=== PATIENT | male | born 1945 | race Caucasian/White ===

== ENCOUNTER 2020-01-12 13:06 | Outpatient (CLI) | payer MEDICARE, BC, SELFPAY ==
--- NOTE | 2020-01-12 13:30 | USCV_ITS ---
Roderick Arnold Age: 74 Gender: M : 1945 Exam Date: 01/12/2020 13:19 Ordering Phys: Marcelina Sharpe MD ([email or web address]) Technologist: Khadar Small Exam Location: [facility] – [place] Indication: BP: 130 / 75 HR: 69 Rhythm: Sinus Technical Quality: Fair MEASUREMENTS (Male / Female) Normal Values 2D ECHO LVOT Diameter 2.0 cm LA Diameter 4.6 cm LA Width 4.1 cm LA Height 5.1 cm RA Width 3.1 cm RA Height 4.4 cm Aorta at Sinotubular Diameter 1.1 cm M-MODE LV Diastolic Diameter MM 4.9 cm 4.2 - 5.9 / 3.9 - 5.3 cm LV Systolic Diameter MM 3.9 cm LV Ejection Fraction MM Teich 44.4 % IVS Diastolic Thickness MM 0.9 cm 0.6 - 1.0 / 0.6 - 0.9 cm IVS Systolic Thickness MM 1.4 cm LVPW Diastolic Thickness MM 1.4 cm 0.6 - 1.0 / 0.6 - 0.9 cm LVPW Systolic Thickness MM 1.8 cm RV Diastolic Diameter MM 2.3 cm Aortic Annulus Diameter 4.0 cm LA Ao Ratio MM 1.2 MV E Point Septal Separation 0.7 cm DOPPLER AV Peak Velocity 323.0 cm/s LVOT Peak Velocity 91.0 cm/s AV Area Cont Eq vti 0.9 cm squared AV Area Cont Eq pk 0.9 cm squared MV Area PHT 5.4 cm squared Mitral E to A Ratio 0.8 MV E' Velocity 57.0 cm/s Mitral E to LV E' Septal Ratio 12.4 TR Peak Velocity 276.0 cm/s TR Peak Gradient 30.5 mmHg TV Peak E Velocity 114.0 cm/s Right Atrial Pressure 3.0 mmHg Pulmonary Artery Systolic Pressu 33.5 mmHg PV Peak Velocity 101.0 cm/s FINDINGS Left Ventricle Normal left ventricular cavity size. Normal left ventricular systolic function. No regional wall motion abnormalities. Left ventricular ejection fraction is estimated at 60 %. No regional wall motion abnormalities. Grade I/IV diastolic dysfunction (abnormal relaxation filling pattern), normal to mildly elevated filling pressures. Right Ventricle The right ventricle is normal in size and function. Right Atrium The right atrium is normal in size. Left Atrium The left atrium is normal in size. Mitral Valve Moderately thickened mitral valve. Severe mitral annular calcification. No mitral valve stenosis. No mitral valve regurgitation. Aortic Valve Severe aortic valve calcification. Moderate aortic valve stenosis, mean gradient 19 mmHg, KAEL 0.92 cm squared. Mild aortic valve regurgitation. Tricuspid Valve Structurally normal tricuspid valve without significant stenosis or regurgitation. Pulmonary artery systolic pressure is normal. Pulmonic Valve Structurally normal pulmonic valve without significant stenosis. There is no pulmonic regurgitation. Pericardium Normal pericardium without effusion. Aorta Normal ascending aorta dimension. CONCLUSIONS 1-Normal left ventricular cavity size. Normal left ventricular systolic function. No regional wall motion abnormalities. Left ventricular ejection fraction is estimated at 60 %. No regional wall motion abnormalities. Grade I/IV diastolic dysfunction (abnormal relaxation filling pattern), normal to mildly elevated filling pressures. 2-Moderately thickened mitral valve. Severe mitral annular calcification. No mitral valve stenosis. No mitral valve regurgitation. 3-Severe aortic valve calcification. Moderate aortic valve stenosis, mean gradient 19 mmHg, KAEL 0.92 cm squared. Mild aortic valve regurgitation. 4-There is no pericardial effusion. 5-Pulmonary artery systolic pressure is within normal limits. 6-Right atrial pressure is around 5 mm of mercury. 7-When compared to the prior echocardiogram dated 12/23/2013 there is moderate aortic valve stenosis and severe mitral annulus calcification with mild mitral valve regurgitation now. Marcelina Sharpe MD (Electronically Signed) Final Date: 14 January 2020 19:28 S
== END 2020-01-12 13:07 | disposition home or self-care (01) ==
LOC: US 13:07
PROVIDERS: PCP Family Medicine; Visit Provider Internal Medicine Cardiovascular Disease
DX: R06.02 Shortness of breath (principal); I08.0 Rheumatic disorders of both mitral and aortic valves
CPT/HCPCS: 93306

== ENCOUNTER 2022-08-01 14:22 | Outpatient (CLI) | payer OTHER, SELFPAY ==
--- NOTE | 2022-08-01 | USCV_ITS ---
Roderick Arnold Age: 77 Gender: M : 1945 Exam Date: 08/01/2022 15:18 Ordering Phys: Navarro Gutiérrez Technologist: MAURICIO Exam Location: [facility] [place] [facility] [place] Indication: HISTORY OF AORTIC STENOSIS, MURMUR BP: 140 / 70 HR: 62 Rhythm: Sinus Technical Quality: Adequate MEASUREMENTS (Male / Female) Normal Values 2D ECHO LVOT Diameter 2.0 cm LV Ejection Fraction MOD 2C 55.2 % LV Ejection Fraction 2C AL 57.6 % LA Diameter 4.6 cm LA Width 4.0 cm LA Height 5.3 cm RA Width 3.9 cm RA Height 5.5 cm Aorta at Sinotubular Diameter 2.9 cm IVC Diameter 1.6 cm M-MODE Aortic Annulus Diameter 3.2 cm LA Ao Ratio MM 1.5 MV E Point Septal Separation 1.2 cm DOPPLER AV Peak Velocity 390.5 cm/s LVOT Peak Velocity 79.0 cm/s AV Area Cont Eq vti 0.6 cm squared AV Area Cont Eq pk 0.7 cm squared MV Peak Velocity 79.0 cm/s MV Area PHT 2.7 cm squared Mitral E to A Ratio 0.8 MV E' Velocity 35.0 cm/s Mitral E to MV E' Ratio 9.5 Mitral E to LV E' Lateral Ratio 9.1 Mitral E to LV E' Septal Ratio 10.1 TR Peak Velocity 200.5 cm/s TR Peak Gradient 16.1 mmHg TR Mean Velocity 166.1 cm/s TR Mean Gradient 11.5 mmHg TR Velocity Time Integral 49.1 cm TV Peak E Velocity 52.0 cm/s Right Atrial Pressure 3.0 mmHg Pulmonary Artery Systolic Pressu 19.1 mmHg PV Peak Velocity 114.0 cm/s RV Acceleration Time 0.1 s RV Ejection Time 0.3 s RV AcT/ET 0.3 FINDINGS Left Ventricle Left ventricle is normal in size. LV systolic function is normal with EF of 55 to 60%. No regional wall motion abnormalities are seen. Grade 1 diastolic dysfunction Right Ventricle Normal in size and function. Right Atrium Normal in size Left Atrium Dilated Mitral Valve Structurally normal mitral valve. Mild mitral regurgitation. Aortic Valve Aortic valve is thickened and calcified. Severe aortic stenosis with mean gradient across aortic valve of 34mmHg. Aortic valve area is 0.74cm2. Mild aortic regurgitation. Tricuspid Valve Mild tricuspid regurgitation. Pulmonary artery systolic pressure is normal. Pulmonic Valve Not well visualized. Mild pulmonic regurgitation Pericardium Normal Aorta Normal in size IVC Appears to be normal CONCLUSIONS LV systolic function is normal with EF of 55 to 60%. Grade 1 diastolic dysfunction Left atrial dilation Mild mitral regurgitation Severe aortic stenosis with mean gradient across aortic valve of 34 mmHg and aortic valve area of 0.74 cm squared. Mild aortic regurgitation. Compared to prior echocardiogram from 2019, aortic stenosis has progressed and is severe now. Alex Daley MD (Electronically Signed) Final Date: 09 August 2022 12:30 S
== END 2022-08-01 14:23 | disposition home or self-care (01) ==
LOC: RAD 14:36
PROVIDERS: PCP Family Medicine; Visit Provider Nurse Practitioner Family
DX: R01.1 Cardiac murmur, unspecified (principal); I08.0 Rheumatic disorders of both mitral and aortic valves
CPT/HCPCS: 93306

== ENCOUNTER → 2022-09-13 14:50 | Outpatient (BNVA) | payer OTHER, SELFPAY | PROVIDERS: PCP Family Medicine; Visit Provider Internal Medicine | DX: I11.9 Hypertensive heart disease without heart failure (principal); I35.0 Nonrheumatic aortic (valve) stenosis; I49.3 Ventricular premature depolarization; Z87.891 Personal history of nicotine dependence | CPT/HCPCS: 99214 ==

== ENCOUNTER 2022-09-19 05:42 | Outpatient (CLI) | payer OTHER, SELFPAY ==
[2022-09-19] VITALS (7 sets, daily range): BP systolic 142–158; BP diastolic 73–106; PULSE 52–75; RESP 16–31; TEMP 36.8; O2SAT 94–97; BMI 31.7
--- NOTE | 2022-09-19 06:00 | XACV_ITS ---
Exam Room: 2 Ht: 183 cm Wt: 106 kg BSA: 2.35 m2 Gender: Male : 1945 Any Known Allergies: No known allergies Exam Priority: Routine Procedure(s): Procedure Description: Diagnostic procedure Procedure Description: PCI procedure Procedure Description: Left Heart Catheterization Procedure Description: Right Heart Catheterization Procedure Description: O2 saturation Procedure Description: Coronary IVUS Procedure Description: PTCA Procedure Description: Miscellaneous Procedure Description: ACT Procedure Description: Coronary Angiography Diagnostic Cath Status: Elective Diagnostic Findings * Proximal Right Coronary Artery: severe 70% stenosis, SADIE: 3 flow. Stenosis starts at distal edge of the stent and is calcified. * Right heart cath showed significantly elevated right and left sided cardiac pressures. * Aortic valve study: * Aortic valve area: 1.3 cm2 Mean gradient across aortic valve 29 mmHg. * Left Anterior Descending has no significant disease. * Left Main: moderate 50% stenosis, SADIE: 3 flow. * Distal Right Coronary Artery: moderate 50% stenosis, SADIE: 3 flow. * Mid Circumflex: obstructive 70% stenosis, SADIE: 3 flow. * Distal Circumflex: critical 95% stenosis, SADIE: 3 flow. * Coronary angiography shows right dominance. PCI Status: Elective PCI Indication: Other Interventional Findings * Procedure detail: After diagnostic procedure, we decided to proceed with PCI of left circumflex artery and RCA. Run-through wire was used to cross left circumflex artery stenosis after anticoagulation with heparin. Balloon angioplasty of distal left circumflex was performed with 2.5 x 12 mm semicompliant balloon. We then performed balloon angioplasty of mid LCx lesion however it was calcified and balloon did not expand well. IVUS of the left main artery was performed that was borderline severe with minimal luminal area of 6.4 mm2. Given borderline severe left main disease, left circumflex artery disease, RCA disease and moderate aortic stenosis, we decided to refer him for possible CABG with aortic valve replacement. Guidewire and catheter were removed. Patient left the Mule Spinner in a stable condition.. * Distal Circumflex: 95% stenosis treated with a AB TREK 2.50X12 RX BALLOON. 20% residual stenosis, SADIE: 3 flow. Conclusions 1. Severe distal left circumflex artery stenosis s/p balloon angioplasty. Severe mid left circumflex artery stenosis that did not yield with balloon angioplasty. Stenting not done. Severe RCA stenosis Borderline severe left main artery stenosis with minimal luminal area of 6.4 mm2 on IVUS Moderate aortic stenosis. 2. Elevated right and left sided cardiac pressures. 3. Distal Circumflex was treated with a Balloon. Recommendations * Patient has severe multivessel CAD including borderline severe distal left main artery, severe left circumflex artery stenosis, severe RCA stenosis. Patient also has moderate aortic stenosis. We will refer him to CT surgery for CABG with aortic valve replacement evaluation. * Aggressive risk factor modication. * Outpatient cardiology follow up in 4 weeks. Interventional RX Recommendation: CABG Diagnostic RX Recommendation: CABG Anticoagulation: Heparin Pressures Phase:Rest AO : 100 / 63 ( 80 ) @ 8:47:00 AM 123 / 59 ( 81 ) @ 9:03:00 AM 109 / 66 ( 80 ) @ 9:03:00 AM 116 / 69 ( 86 ) @ 9:03:00 AM 114 / 66 ( 83 ) @ 9:03:00 AM 129 / 90 ( 101 ) @ 9:23:00 AM 145 / 85 ( 110 ) @ 9:27:00 AM LV : 192 / 8 / 24 @ 9:03:00 AM 147 / 11 / 62 @ 9:03:00 AM 161 / 8 / 61 @ 9:03:00 AM 174 / 7 / 22 @ 9:03:00 AM RV : 45 / 9 / 15 @ 8:40:00 AM PA : 45 / 28 ( 30 ) @ 8:38:00 AM RA : a wave = 16 v wave = 15 mean = 14 @ 8:40:00 AM PCW : a wave = 27 v wave = 31 mean = 22 @ 8:38:00 AM O2 Content Phase:Rest PA : O2 Content O2: 68.2 @ 8:47:00 AM Saturations Phase:Rest AO : 95 @ 9:03:00 AM PA : 68 @ 8:47:00 AM Cardiac Output Phase:Rest Fredy : 5 @ 8:36:15 AM Fredy Cardiac Index: 2 @ 8:36:15 AM Flow Phase:Rest Qp : 5 @ 8:36:15 AM Qs : 5 @ 8:36:15 AM Valves Phase:DefaultPhase AV : 60.0 @ 8:36:15 AM 60.0 @ 8:36:15 AM AV Mean Gradient: 29.0 @ 8:36:15 AM 29.0 @ 8:36:15 AM AV Flow: 330 @ 8:36:15 AM AV Area: 1.4 @ 8:36:15 AM AV Area Index: 0.61 @ 8:36:15 AM Clinical Evaluation EBL: 5mL-10mL Procedural Details Procedure Consent Obtained. Admit Source: Out Patient. Pre-Procedure Time Out. Identified patient by full name and date of as verbalized by the patient/guarantor. Does the consent match the physician's order: Yes. Accurate & Complete Informed Consent: Yes. Inpatient/Outpatient History & Physical on Chart: Yes. If H&P is completed, is and addenduem needed: No; If yes, is the addendum complete: N/A. Visualize and Verify Site with Patient/Guarantor: N/A. Relevant Radiology Images available: N/A. Pre-op teaching completed and patient verbalized understanding. The risks, benefits, and alternatives of sedation and/or procedure were discussed by physician. The patient agrees to continue. Procedure started. [facility] Clinical Fraility Score: 3: Managing Well. Mule Spinner Indications: Valvular Disease. Chest Pain Symptom Assessment: Asymptomatic. Correct patient, site and procedure confirmed by cath team. Current diagnosis: Aortic Valve Stenosis. PERRLA. Strong, equal hand safety advisor bilaterally. Lungs clear x 5 lobes. IV Site on Arrival: 20 gauge in the left anticubital. IV Site on Arrival: 18 gauge in the right anticubital. IV Fluids: 0.9% NaCl at KVO. 0 mL infused prior to crime lab analyst. Pre Procedural Pulses: bilateral dorsalis pedis was 1+. Pre Procedural Pulses: bilateral radial was 3+. right groin was prepped with chloroprep then draped in the usual sterile fashion. right radial was prepped with chloroprep then draped in the usual sterile fashion. right brachial was prepped with chloroprep then draped in the usual sterile fashion. Baseline sample Acquired. HR: 61 BPM. Physician notified. Physician arrived. Physician scrubbed in. Immediate Pre-Procedure Time Out. Correct Patient: Yes; Correct Procedure: Yes; Correct Site: Yes; Correct Patient Position: Yes; Correct Supplies: Yes; Dried Flammable Prep: Yes; Blood Products Available: N/A;. Wire inserted into IV catheter in R brachial vein. IV catheter out. Lidocaine 1% infiltrated to the right brachial. 6Fr sheath inserted over wire in R brachial vein. [place] MON catheter inserted. [place] wire inserted through [place] Mon catheter. [place] wire removed. Pressure measurements obtained. [place] out. Lidocaine 1% infiltrated to the right radial. Arterial access obtained. Oximetry samples were obtained. Normal venous range: 60-85%. Normal arterial range: 95-100%. A 5 [place] TIG catheter in over wire. Multiple views taken of left coronary artery. Catheter redirected to the RCA. Multiple views taken of right coronary artery. Glidewire inserted. Catheter removed over the Glidewire. A 5 [place] AL1 catheter in over wire. Glidewire removed. Exchange wire inserted. Catheter out over exchange wire. A 6 [place] catheter in over wire. Exchange wire out. Gradient taken: LV 147/11,62; AO 109/66(80); Mean: 26mmHg, Peak to Peak: 38mmHg, SEP: 17sec/min; HR: 75 BPM; SpO2: 97%. Gradient taken: LV 174/7,22; AO 114/66(83); Mean: 29mmHg, Peak to Peak: 60mmHg, SEP: 15sec/min; HR: 59 BPM; SpO2: 97%. Catheter out. 6 [place] XB 3.5 guide catheter was inserted over the wire. Guide catheter out. 6 [place] XB 3.5 guide catheter was inserted over the wire. Unable to engage catheter. Guide catheter out. 6 [place] XB 3 guide catheter was inserted over the wire. Runthrough guidewire was advanced through the guide catheter to lesion in the Distal L Main and positioned in the mid circumflex. IVUS catheter inserted. IVUS run performed of distal L Main. IVUS catheter out. Runthrough wire advanced to the distal circumflex. Balloon inserted to lesion in the distal Circ. Inflation number : 1 A AB TREK 2.50X12 RX BALLOON was prepped and advanced across the Dist CX , then inflated to 12 JOHN for 0:16 seconds. Inflation number: 2 The AB TREK 2.50X12 RX BALLOON was reinflated across the Dist CX, to 12 JOHN for 0:10 seconds. Inflation number: 3 The AB TREK 2.50X12 RX BALLOON was reinflated across the Dist CX, to 14 JOHN for 0:16 seconds. Inflation number: 4 The AB TREK 2.50X12 RX BALLOON was reinflated across the Dist CX, to 14 JOHN for 0:11 seconds. Balloon out. Results checked. ACT drawn. Results 316 seconds. Therapeutic limits - pre-heparin administration 90-150 seconds and monitoring heparin during a vascular procedure >250 seconds. Post-op diagnosis: Severe Mid to Distal Circumflex and RCA stenosis. Successful ballooning of distal Circumflex. Guide catheter out. A TR Band was successful obtaining hemostatsis at the Right Radial artery insertion site. Post Procedure: Pulses reassessed and unchanged. PERRLA. Strong, equal hand safety advisor bilaterally. No VTE prophylaxis required. Medication's Wasted: Heparin = 4000 u. Medication's Wasted: Nitro = 49.8 mg. Medication's Wasted: Lidocaine 1% = 6 mL. Medication's Wasted: Other = Fentanyl 50 mcg. Total IV fluids: 62 mL. PCI Indication: CAD. Complications: none. Estimated blood loss: 5mL-10mL. Responsiveness - Normal response to verbal stimuli; alert and oriented, PERRLA. Airway - Unaffected, no intervention required; spontaneous ventilation. Circulation: W/N/L, pulses unchanged. Nausea/Vomiting: No. Procedure completed. Patient transferred by wheelchair to CPRU. Vital chart was stopped. Access Site Site: Right Radial artery Sheath Size: 6 Fr Hemostasis Method: TR Band Hemostasis Success: Successful Procedure Medications Start: 7:31 AM Stop: 7:31 AM Medication: Versed Amount: 1 mg Route: I.V. Start: 7:31 AM Stop: 7:31 AM Medication: Fentanyl Amount: 50 mcg Route: I.V. Start: 7:44 AM Stop: 7:44 AM Medication: Nitrogylcerin Amount: 200 mcg Route: I.A. Start: 7:46 AM Stop: 7:46 AM Medication: Versed Amount: 1 mg Route: I.V. Start: 7:47 AM Stop: 7:47 AM Medication: Heparin Amount: 5000 units Route: I.V. Start: 8:08 AM Stop: 8:08 AM Medication: Heparin Amount: 3000 units Route: I.V. Start: 8:16 AM Stop: 8:16 AM Medication: Heparin Amount: 1000 units Route: I.V. Start: 8:27 AM Stop: 8:27 AM Medication: Heparin Amount: 1000 units Route: I.V. I, the attending physician, have reviewed and verified all procedure medications. Yes, all medications given per verbal order History/Risk Factors Hypertension: Yes Dyslipidemia: No Peripheral Arterial Disease (PAD): No Myocardial Infarction (CT): No Obesity: Yes Renal Disease: No Tobacco Use: Former Prior Interventions PCI: Yes CABG: No Valve Surgery: No Date of PCI: 10/22/2017 Report Signatures Finalized by Alex Daley MD on 09/25/2022 10:41 AM
[2022-09-19] MEDS: diphenhydrAMINE 50 mg Capsule PO (06:30)
[2022-09-19 06:36] LABS: Basophils # 0.1 10^3/uL (0.0-0.1); Basophils % 0.9 %; Eosinophils # 0.2 10^3/uL (0.0-0.8); Eosinophils % 1.8 %; Hematocrit 44.6 % (42.0-52.0); Hemoglobin 14.5 g/dL (11.7-16.6); Lymphocytes # 3.2 10^3/uL (0.8-4.8); Lymphocytes % 29.7 %; Mean Corpuscular HGB Conc 32.5 g/dL (30.0-36.0); Mean Corpuscular Hemoglobin 29.4 pg (28.0-34.0); Mean Corpuscular Volume 90.5 fl (80-94); Mean Platelet Volume 10.4 fL (7.4-10.4); Monocytes % 9.2 %; Neutrophils # 6.31 10^3/uL (1.8-7.7); Nucleated Red Blood Cells % 0 %; Platelet Count 330 10^3/cmm (130-400); Red Blood Count 4.93 10^6/uL (4.1-5.3); Red Cell Distribution Width 13.7 % (12.1-15.1); White Blood Count 10.9 10^3/uL (4.0-10.0)
[2022-09-19 06:51] LABS: Glucose Point of Care 151 mg/dL (70-110)
[2022-09-19 06:56] LABS: Anion Gap 12.9 (5-19); Blood Urea Nitrogen 10 mg/dL (8-23); Calcium 9.2 mg/dL (8.5-10.5); Carbon Dioxide 27 mmol/L (22-29); Chloride 101 mmol/L (98-107); Glucose 165 mg/dL (65-115); Osmolality Calculated 287 mOsm/kg (285-295); Potassium 3.9 mmol/L (3.5-5.1); Sodium 137 mmol/L (136-145)
--- NOTE | 2022-09-19 07:23 | W.PM.OPSUD ---
Surgery/Procedure H&P Update DATE OF PROCEDURE: September 19, 2022 DATE H&P PERFORMED: 09/13/22 H&P UPDATE INFORMATION: I have reviewed H&P completed within last 30 days, I have examined patient prior to procedure and No changes to prior documentation PREOP DIAGNOSIS: Severe aortic stenosis PRIMARY INDICATION FOR PROCEDURE: Severe aortic stenosis PLANNED PROCEDURE: Operation Date: 09/19/22 07:00 Proposed Procedures p right and left heart cath 39210,I35.0(Bilateral) - Alex Daley M.D Possible percutaneous coronary intervention PATIENT REASSESSED PRIOR TO SEDATION, WITH NO CHANGE NOTED: Yes PHYSICAL EXAM: alert, oriented x 3, clear to auscultation bilaterally and regular rate & rhythm OTHER PERTINENT EXAM FINDINGS: Grade 3/6 systolic murmur AIRWAY EVAL/ANESTHESIA PLAN: normal airway, ASA III, Local Anesthesia, Risks, benefits & alternatives of sedation and/or procedure discussed and Patient agrees to continue as planned ADDITIONAL INFORMATION: Moderate sedation
[2022-09-19 07:50] LABS: Blood Gas Operator Identificat WALCI; Blood Gas Sample Type Not specified; Carboxyhemoglobin 1.1 %THgb (0.4-20.1); HGB O2 Sat 93.2 % (95-100); Methemoglobin 0.5 % (0.4-1.5); Total Hemoglobin 13.7 g/dL (14-18)
[2022-09-19 07:53] LABS: Arterial Blood Gas Hematocrit 43.8 % (42-52); Blood Gas Operator Identificat WALCI; Blood Gas Sample Type Not specified; Carboxyhemoglobin 1.2 %THgb (0.4-20.1); HGB O2 Sat 67.2 % (95-100); Methemoglobin 0.4 % (0.4-1.5); Total Hemoglobin 14.3 g/dL (14-18)
--- NOTE | 2022-09-19 11:30 | PC.NURSE ---
1130: TR Band removed from patients right wrist. No drainage or hematoma noted. Vital stable. No c/o pain or discomfort. Will continue to monitor.
--- NOTE | 2022-09-19 12:36 | P.SS_ITS ---
Short Stay Summary Providers Date of Admit/Discharge: 09/19/22 Attending Provider: Alex Daley M.D Primary Care Provider: Lila Salmeron Chief Complaint: I35.0 HPI History of Present Illness Roderick Arnold is a 77 year old male Who came to hospital for right and left heart cath with possible percutaneous coronary intervention secondary to aortic stenosis Review of Systems Const: Reports: fatigue Card: Reports: lightheadedness, dyspnea on exertion, orthopnea and leg pain with exertion; Denies: chest pain, palpitations, irregular heart rhythm, swelling of feet/ankles or pre-syncope Resp: Reports: dyspnea; Denies: productive cough or non-productive cough Musc: Denies: neck pain or back pain Neuro: Denies: headache(s) or dizziness Psych: Denies: anxiety, depression, suicidal ideation or homicidal ideation Chapo/Lymph: Denies: easy bruising or easy bleeding Home Meds/Allergies Home Medications and Allergies Home Medications Medication Instructions Recorded Confirmed Type aspirin 81 mg tablet,delayed 81 mg PO DAILY 10/20/19 09/19/22 History release (Aspir-) carvedilol 6.25 mg tablet 6.25 mg PO BID 10/20/19 09/19/22 History clopidogrel 75 mg tablet 75 mg PO DAILY 10/20/19 09/19/22 History cranberry 500 mg capsule 500 mg PO BID 10/20/19 09/19/22 History empagliflozin 25 mg tablet 12.5 mg PO BID 10/20/19 09/19/22 History glipizide 10 mg tablet 10 mg PO BID 10/20/19 09/19/22 History pantoprazole 40 mg tablet,delayed 40 mg PO DAILY 10/20/19 09/19/22 History release tamsulosin 0.4 mg capsule 0.4 mg PO DAILY 10/20/19 09/19/22 History omega-3 fatty acids 1,000 mg 2,000 mg PO BID 06/28/20 09/19/22 History capsule (Fish Oil Concentrate) amlodipine 5 mg tablet 5 mg PO DAILY 09/13/22 09/19/22 History losartan 100 mg tablet 50 mg PO BID 09/13/22 09/19/22 History metformin 850 mg tablet 850 mg PO BID 09/13/22 09/19/22 History mulitivitamin PO 09/13/22 09/13/22 History nitroglycerin 0.4 mg sublingual 0.4 mg sublingual Q5M PRN Chest 09/13/22 09/18/22 History tablet Pain rosuvastatin 10 mg tablet 10 mg PO DAILY 09/13/22 09/19/22 History sour lei extract 1,000 mg mg PO 09/13/22 09/13/22 History capsule (Tart Lei Extract) Allergies Allergy/AdvReac Type Severity Reaction Status Date / Time No Known Allergies Allergy Verified 09/18/22 10:19 PFSH Acute PFSH: Medical History Aortic stenosis ASHD (arteriosclerotic heart disease) CAD (coronary artery disease) Diastolic dysfunction Gross hematuria HTN (hypertension) Lower urinary tract symptoms (LUTS) Prostate cancer PVCs (premature ventricular contractions) 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 Surgical History S/P PTCA (percutaneous transluminal coronary angioplasty) Family History Father Diabetes Other CAD (coronary artery disease) Hypertension Myocardial infarction Stroke Social History Smoking and tobacco status: former smoker Alcohol intake: never Substance/Drug Use: unknown Adopted: No Caregiver/support person: No Lives independently: No Household members: spouse Marital status: Current occupational status: retired Vitals/I&O/Wt Last Vital Signs Temp 98.3 F 09/19/22 06:00 Pulse 70 09/19/22 09:45 Resp 16 09/19/22 09:45 BP 152/85 09/19/22 09:45 Pulse Ox 94 09/19/22 09:45 O2 Del Method Room Air 09/19/22 08:45 Weight last 48 hrs Weight 234 lb Physical Exam Narrative: GENERAL: Patient is alert, awake and oriented x3. [] NECK: No jugular vein distension. [] HEENT: No cyanosis. No icterus. No pallor. [] HEART: Regular S1 and S2. No murmur, rub or gallop. [] LUNGS: Clear to auscultate bilaterally. [] CENTRAL NERVOUS SYSTEM: Grossly nonfocal. [] EXTREMITIES: Lower extremities with 1+ edema bilaterally. Pulses palpable in the lower extremities, both dorsalis pedis and posterior tibial. [] Hospital Course Hospital Course Right and left heart cath showed elevated cardiac pressures and severe RCA and left circumflex artery stenosis.Left circumflex artery underwent balloon angioplasty however was calcified vessel and balloon was not expanding well. Patient also has moderate to severe left main artery stenosis. 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 Routin e Exams 09/19/22 06:00 Taken ABG Co[facility] Only Rou frankie Lab 09/19/22 07:39 Results ABG [facility] Only Rou frankie Lab 09/19/22 07:41 Results Discharge Plan Discharge Patient Disposition: Home Prescriptions: Continued pantoprazole 40 mg tablet,delayed release (DR/EC) 40 mg PO DAILY clopidogrel 75 mg tablet 75 mg PO DAILY cranberry 500 mg capsule 500 mg PO BID Rx Instructions: administer with meals aspirin [Aspir-81] 81 mg tablet,delayed release (DR/EC) 81 mg PO DAILY glipizide 10 mg tablet 10 mg PO BID tamsulosin 0.4 mg capsule 0.4 mg PO DAILY carvedilol 6.25 mg tablet 6.25 mg PO BID Rx Instructions: must administer with a meal/food empagliflozin 25 mg tablet 12.5 mg PO BID omega-3 fatty acids [Fish Oil Concentrate] 1,000 mg capsule 2,000 mg PO BID amlodipine 5 mg tablet 5 mg PO DAILY mulitivitamin PO rosuvastatin 10 mg tablet 10 mg PO DAILY nitroglycerin 0.4 mg tablet, sublingual 0.4 mg sublingual Q5M PRN (Reason: Chest Pain) Rx Instructions: do not exceed 3 doses per episode Tart Lei Extract 1,000 mg capsule PO losartan 100 mg tablet 50 mg PO BID Held metformin 850 mg tablet 850 mg PO BID Hold Instructions: Resume on 09/21/22. Discharge Orders: Discharge Order (Routine); Ordered 09/19/22 Ordered By: Alex Daley Referrals: Marion Sheffield FNP [Nurse Practitioner] - 09/26/22 9:30 am Diet: Diabetic Activity: Increase activity as tolerated Patient Instructions: Coronary Angioplasty (DC), Heart Catheterization (DC) Discharge Date/Time: 09/19/22 13:07 Attestations Medical Necessity Statement*: Care not expected to cross 2 midnights Time Spent in Patient Care*: greater than 30 min Quality Metrics Clinical Quality Measures: [ No reported AMI, CVA or VTE this stay ] Coding Level of Care Code Acute Code for Chg Fwd Diagnoses
--- NOTE | 2022-09-19 13:03 | PC.NURSE ---
Discharge orders received. Dsg over puncture site to patients right wrist clean, dry, et intact. No drainage or hematoma noted. Vitals stable. IV removed. Follow up appointment made. Education given to patient. Patient verbalized understanding of all teaching. Patient discharged to home via wheelchair with son in private vehicle.
== END 2022-09-19 13:07 | disposition home or self-care (01) ==
PROVIDERS: PCP Nurse Practitioner Family; Visit Provider Internal Medicine
DX: I35.0 Nonrheumatic aortic (valve) stenosis (principal); Z79.82 Long term (current) use of aspirin; Z79.02 Long term (current) use of antithrombotics/antiplatelets; Z87.891 Personal history of nicotine dependence; I10 Essential (primary) hypertension; E66.9 Obesity, unspecified; Z68.31 Body mass index [BMI] 31.0-31.9, adult; I25.10 Atherosclerotic heart disease of native coronary artery without angina pectoris
CPT/HCPCS: 36415; 36416; 80048; 82810; 82962; 85025; 85347; 92920; 92978; 93460; 96361; 96365; 99152; 99153; C1725; C1751; C1753; C1769; C1887; C1894; J1644; J2250; J3010; J3490; J7030; Q0163; Q9967

== ENCOUNTER → 2022-12-04 13:30 | Outpatient (BNVA) | payer OTHER, SELFPAY | PROVIDERS: PCP Nurse Practitioner Family; Visit Provider Nurse Practitioner Family | DX: I25.10 Atherosclerotic heart disease of native coronary artery without angina pectoris (principal); I47.1 Supraventricular tachycardia; I45.89 Other specified conduction disorders | CPT/HCPCS: 93005; 99214 ==

== ENCOUNTER → 2023-01-16 13:56 | Outpatient (BNVA) | payer OTHER, SELFPAY | PROVIDERS: PCP Nurse Practitioner Family; Visit Provider Dermatology | DX: L81.4 Other melanin hyperpigmentation (principal); L57.0 Actinic keratosis; L21.8 Other seborrheic dermatitis; L60.8 Other nail disorders; Z85.828 Personal history of other malignant neoplasm of skin | CPT/HCPCS: 99214 ==

== ENCOUNTER → 2023-01-22 14:30 | Outpatient (BNVA) | payer OTHER, SELFPAY | PROVIDERS: PCP Nurse Practitioner Family; Visit Provider Internal Medicine | DX: R07.9 Chest pain, unspecified (principal); I48.91 Unspecified atrial fibrillation; I10 Essential (primary) hypertension; I51.89 Other ill-defined heart diseases; I49.3 Ventricular premature depolarization; I35.0 Nonrheumatic aortic (valve) stenosis; I25.10 Atherosclerotic heart disease of native coronary artery without angina pectoris; Z87.891 Personal history of nicotine dependence | CPT/HCPCS: 36415; 80048; 83880; 93005; 99214 ==

== ENCOUNTER 2023-01-29 07:19 | Outpatient (CLI) | payer OTHER, SELFPAY ==
--- NOTE | 2023-01-29 07:45 | USCV_ITS ---
Roderick Arnold Age: 77 Gender: M : 1945 Exam Date: 01/29/2023 07:43 Ordering Phys: Alex Daley M.D ([email or web address]) Technologist: CT Exam Location: [facility] [place] Indication: cad,as BP: 130 / 80 HR: 71 Rhythm: Sinus Technical Quality: Adequate MEASUREMENTS (Male / Female) Normal Values 2D ECHO LV Chamber Size 5.7 cm RV Chamber Size 4.0 cm LVOT Diameter 2.1 cm LV Ejection Fraction MOD 2C 37.0 % LV Ejection Fraction 2C AL 36.0 % LA Diameter 5.0 cm LA Width 6.3 cm LA Height 5.9 cm RA Width 4.7 cm RA Height 6.3 cm Aorta at Sinotubular Diameter 2.3 cm IVC Diameter 1.8 cm M-MODE MV E Point Septal Separation 1.1 cm DOPPLER AV Peak Velocity 202.0 cm/s LVOT Peak Velocity 89.0 cm/s AV Area Cont Eq vti 1.6 cm squared AV Area Cont Eq pk 1.5 cm squared MV Area PHT 2.6 cm squared Mitral E to A Ratio 2.6 MV E' Velocity 70.0 cm/s Mitral E to MV E' Ratio 14.8 Mitral E to LV E' Lateral Ratio 13.5 Mitral E to LV E' Septal Ratio 16.3 TR Peak Velocity 270.0 cm/s TR Peak Gradient 29.2 mmHg TV Peak E Velocity 91.0 cm/s Right Atrial Pressure 3.0 mmHg Pulmonary Artery Systolic Pressu 32.2 mmHg PV Peak Velocity 106.0 cm/s FINDINGS Left Ventricle Left ventricle is normal in size. LV systolic function is normal with EF of 50 to 55%. No significant regional wall motion abnormalities are seen. Right Ventricle Normal in size and function Right Atrium Not well visualized Left Atrium Severely dilated Mitral Valve Structurally normal mitral valve. Mild to moderate mitral regurgitation. Aortic Valve Bioprosthetic aortic valve is seen. Mean gradient across aortic valve is normal. DVI is normal and is 0.44 Tricuspid Valve Mild tricuspid regurgitation. Pulmonary artery systolic pressure is normal. Pulmonic Valve Mild pulmonic regurgitation Pericardium Normal Aorta Normal in size IVC Appears to be normal CONCLUSIONS LV systolic function is normal with EF of 50 to 55%. Severely dilated left atrium. Mild to moderate mitral regurgitation Normally functioning bioprosthetic aortic valve. Mild tricuspid regurgitation Mild pulmonic regurgitation Compared to prior echocardiogram from 07/23/2022, patient now has normally functioning bioprosthetic aortic valve. Alex Daley MD (Electronically Signed) Final Date: 03 February 2023 13:49 S
== END 2023-01-29 07:20 | disposition home or self-care (01) ==
PROVIDERS: PCP Nurse Practitioner Family; Visit Provider Internal Medicine
DX: R06.02 Shortness of breath (principal); R07.9 Chest pain, unspecified; I25.10 Atherosclerotic heart disease of native coronary artery without angina pectoris; I08.3 Combined rheumatic disorders of mitral, aortic and tricuspid valves; I08.8 Other rheumatic multiple valve diseases
CPT/HCPCS: 93306

== ENCOUNTER 2023-02-22 10:09 | Day surgery (SDC) | payer OTHER, SELFPAY ==
[2023-02-22 10:27] VITALS: BP 140/93; PULSE 97; RESP 16; TEMP 36.3; O2SAT 96; BMI 31.1
[2023-02-22] MEDS: sodium chloride 0.9% 1,000 ML 30 ML IV (10:40)
[2023-02-22 10:42] LABS: Glucose Point of Care 172 mg/dL (70-110)
--- NOTE | 2023-02-22 11:25 | ANE.PACU2 ---
Inpatient post-anesthesia follow up: Airway intact: Yes Vital signs: Temperature 97 F Pulse Rate 85 Respiratory Rate 16 Blood Pressure 113/70 Pulse Oximetry 98 Oxygen Delivery Me thod Room Air Oxygen Flow Rate 5 Fraction of Inspir ed Oxygen Hydration adequate: Yes Nausea and vomiting: No Pain level: 1 Mental status: Baseline
--- NOTE | 2023-02-22 11:59 | ECG_ITS ---
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 Measurements Intervals [place] Rate: 87 P: 0 MN: 0 QRS: 16 QRSD: 108 T: -30 QT: 380 QTc: 459 Interpretive Statements ATRIAL FIBRILLATION POSSIBLE INFERIOR MYOCARDIAL INFARCTION , PROBABLY OLD [30 ms Q WAVE IN II/aVF] Compared to ECG 01/22/2023 14:40:30 Myocardial infarct finding now present T-wave abnormality no longer present Electronically Signed On 02-22-2023 13:42:40 CDT by Alex Daley M.D. [id number]
--- NOTE | 2023-02-22 11:59 | ANES.PREANE2 ---
Pre-Anesthetic Assessment Height/Weight: Height 1.83 m Weight 104.326 kg Temp Pulse Resp BP Pulse Ox O2 Del Method 97.4 F L 97 16 140/93 96 Room Air 02/22/23 10:27 02/22/23 10:27 02/22/23 10:27 02/22/23 10:27 02/22/23 10:27 02/22/23 10:27 Preop Diagnosis: atrial fibrillation Operation Date: 02/22/23 12:00 Proposed Procedures p CARIDAD/Cardioversion [id number] I48.91(Not Applicable) - Rosalie Suazo Cardioversion(Not Applicable) - Rosalie Suazo anesthetic complications: none Last intake: Intake Last Liquid Date 02/11/23 Last Liquid Time 20:00 Last Solid Date 02/21/23 Last Solid Time 15:00 Social No alcohol and No tobacco Exam alert, oriented x 3, clear to auscultation bilaterally and regular rate & rhythm Airway Submandibular: within normal limits Cervical ROM: within normal limits Mallampati: Class I Dentition: false Pulmonary None reported CV/HEM Atrial Fibrillation, Coronary Artery Disease, Hypertension and Palpitations CABG x3 , AVR- 10/26, FIELD CUT IN LEFT EYE POST-BYPASS SURGERY ECHO ?LV systolic function is normal with EF of 50 to 55%. ?Severely dilated left atrium. ?Mild to moderate mitral regurgitation ?Normally functioning bioprosthetic aortic valve. ?Mild tricuspid regurgitation ?Mild pulmonic regurgitation ?Compared to prior echocardiogram from 07/23/2022, patient now has ?normally functioning bioprosthetic aortic valve. APIXABAN 02/21/23 None reported Hepatic None reported GI Gastroesophageal Reflux Disease Metabolic Diabetes Mellitus and Hyperlipidemia Musc/skel swelling in right leg from vein harvest. Neuropsych Cerebrovascular Accident (field cut in left eye post bypass.) Anesthetic Plan ASA status: 3 Anesthesia: MAC Medications/Allergies Home Medications Medication Instructions Recorded Confirmed Last Taken Type aspirin 81 mg tablet,delayed 81 mg PO DAILY 10/20/19 02/22/23 02/21/23 History release (Aspir-) cranberry 500 mg capsule 500 mg PO DAILY 10/20/19 02/22/23 02/21/23 History glipizide 10 mg tablet 10 mg PO BID 10/20/19 02/22/23 02/21/23 History pantoprazole 40 mg tablet,delayed 40 mg PO DAILY 10/20/19 02/22/23 02/21/23 History release tamsulosin 0.4 mg capsule 0.4 mg PO BID 10/20/19 02/22/23 02/21/23 History omega-3 fatty acids 1,000 mg 2,000 mg PO BID 06/28/20 02/22/23 02/21/23 History capsule (Fish Oil Concentrate) metformin 850 mg tablet 850 mg PO BID 09/13/22 02/22/23 02/21/23 History mulitivitamin 1 tab PO DAILY 09/13/22 02/22/23 02/21/23 History nitroglycerin 0.4 mg sublingual 0.4 mg sublingual Q5M PRN Chest 09/13/22 02/22/23 Unknown History tablet Pain sour lei extract 1,000 mg 1,000 mg PO DAILY 09/13/22 02/22/23 02/21/23 History capsule (Tart Lei Extract) apixaban 5 mg tablet (Eliquis) 5 mg PO BID 12/04/22 02/22/23 02/21/23 History carvedilol 3.125 mg tablet 12.5 mg PO BID 01/22/23 02/22/23 02/21/23 History furosemide 20 mg tablet (Lasix) 20 mg PO DIRECTED #270 tabs 01/24/23 02/22/23 02/21/23 Rx potassium chloride 20 mEq 20 meq PO DAILY #90 tabs 01/24/23 02/22/23 02/21/23 Rx tablet,extended release atorvastatin 80 mg tablet 80 mg PO DAILY 02/21/23 02/22/23 02/20/23 History ergocalciferol (vitamin D2) 10 mcg 10 mcg PO DAILY 02/21/23 02/22/23 02/21/23 History (400 unit) tablet magnesium oxide 200 mg PO DAILY 02/21/23 02/22/23 02/21/23 History ondansetron 4 mg disintegrating 4 mg PO Q8H PRN Nausea And Vomiting 02/21/23 02/22/23 Unknown History tablet pomegran fruit xt-pomegra seed 250 1 cap PO DAILY 02/21/23 02/22/23 02/21/23 History mg capsule Allergies Allergy/AdvReac Type Severity Reaction Status Date / Time No Known Allergies Allergy Verified 02/20/23 11:47 Current Medications Generic Name Dose Route Start Last Admin Trade Name Freq PRN Reason Stop Dose Admin Sodium Chloride 1,000 mls @ 30 mls/hr 02/22/23 10:15 02/22/23 10:40 Sodium Chloride 0.9% IV 02/23/23 10:14 30 mls/hr .Q24H DAYSI Administration PFSH Anesthesia Medical History Aortic stenosis AVR with 25 bioprosthetic valve 10/18/22 ASHD (arteriosclerotic heart disease) Atrial fibrillation CAD (coronary artery disease) CABG x3: HORTA to LAD, SVG to 1st OM and SVG to PDA by Dr Patterson on 10/18/22 Diastolic dysfunction Gross hematuria HTN (hypertension) Lower urinary tract symptoms (LUTS) Prostate cancer PVCs (premature ventricular contractions) 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
--- NOTE | 2023-02-22 12:00 | USCV_ITS ---
Roderick Arnold Age: 77 Gender: M : 1945 Exam Date: 02/22/2023 12:22 Ordering Phys: Alex Daley M.D ([email or web address]) Technologist: MAURICIO Exam Location: [facility] – [place] Indication: AFIB WITH CV BP: 136 / 110 HR: 67 Rhythm: Sinus Technical Quality: Adequate MEASUREMENTS (Male / Female) Normal Values Medications Complications None Proc. Components After anesthesia team administered sedation we proceeded with CARIDAD probe insertion FINDINGS Left Ventricle Normal in size. LV systolic function is normal Right Ventricle Normal in size and function Right Atrium Grossly normal Left Atrium Dilated LA Appendage No left atrial appendage thrombus seen IA Septum Grossly normal Mitral Valve Structurally normal mitral valve. Mild mitral regurgitation. Aortic Valve Bioprosthetic aortic valve. Tricuspid Valve Structurally normal tricuspid valve. Pulmonic Valve Grossly normal Pericardium Normal Aorta Has significant atherosclerotic plaque seen CONCLUSIONS LV systolic function is normal Left atrial dilation No left atrial thrombus seen Mild mitral regurgitation Significant atherosclerotic plaque seen in aorta Alex Daley MD (Electronically Signed) Final Date: 23 February 2023 13:43 S
--- NOTE | 2023-02-22 12:13 | W.PM.OPSFHP ---
Same Day Surgery H&P Indication for Procedure/HPI DATE OF PROCEDURE: February 22, 2023 CHIEF COMPLAINT/INDICATIONFOR SURGICAL PROCEDURE: atrial fibrillation PREOP DIAGNOSIS: atrial fibrillation PLANNED PROCEDURE: Operation Date: 02/22/23 12:00 Proposed Procedures p CARIDAD/Cardioversion [id number] I48.91(Not Applicable) - Rosalie Suazo Cardioversion(Not Applicable) - Alex Daley M.D 77-year-old man with past medical history of CAD, is here for CARIDAD cardioversion. Risks and benefits of the procedure have been discussed. Medications/Allergies* Home Medications Medication Instructions Recorded Confirmed Type aspirin 81 mg tablet,delayed 81 mg PO DAILY 10/20/19 02/22/23 History release (Aspir-) cranberry 500 mg capsule 500 mg PO DAILY 10/20/19 02/22/23 History glipizide 10 mg tablet 10 mg PO BID 10/20/19 02/22/23 History pantoprazole 40 mg tablet,delayed 40 mg PO DAILY 10/20/19 02/22/23 History release tamsulosin 0.4 mg capsule 0.4 mg PO BID 10/20/19 02/22/23 History omega-3 fatty acids 1,000 mg 2,000 mg PO BID 06/28/20 02/22/23 History capsule (Fish Oil Concentrate) metformin 850 mg tablet 850 mg PO BID 09/13/22 02/22/23 History mulitivitamin 1 tab PO DAILY 09/13/22 02/22/23 History nitroglycerin 0.4 mg sublingual 0.4 mg sublingual Q5M PRN Chest 09/13/22 02/22/23 History tablet Pain sour eli extract 1,000 mg 1,000 mg PO DAILY 09/13/22 02/22/23 History capsule (Tart Lei Extract) apixaban 5 mg tablet (Eliquis) 5 mg PO BID 12/04/22 02/22/23 History carvedilol 3.125 mg tablet 12.5 mg PO BID 01/22/23 02/22/23 History atorvastatin 80 mg tablet 80 mg PO DAILY 02/21/23 02/22/23 History ergocalciferol (vitamin D2) 10 mcg 10 mcg PO DAILY 02/21/23 02/22/23 History (400 unit) tablet magnesium oxide 200 mg PO DAILY 02/21/23 02/22/23 History ondansetron 4 mg disintegrating 4 mg PO Q8H PRN Nausea And Vomiting 02/21/23 02/22/23 History tablet pomegran fruit xt-pomegra seed 250 1 cap PO DAILY 02/21/23 02/22/23 History mg capsule Allergies/Adverse Reactions Allergy/AdvReac Type Severity Reaction Status Date / Time No Known Allergies Allergy Verified 02/20/23 11:47 Current Medications: Generic Name Dose Route Start Last Admin Trade Name Freq PRN Reason Stop Dose Admin Sodium Chloride 1,000 mls @ 30 mls/hr 02/22/23 10:15 02/22/23 10:40 Sodium Chloride 0.9% IV 02/23/23 10:14 30 mls/hr .Q24H DAYSI Administration Pertinent History/Comorbid Conditions* Medical History (Updated 12/11/22 @ 16:48 by WALKER George) Aortic stenosis AVR with 25 bioprosthetic valve 10/18/22 ASHD (arteriosclerotic heart disease) Atrial fibrillation CAD (coronary artery disease) CABG x3: HORTA to LAD, SVG to 1st OM and SVG to PDA by Dr Patterson on 10/18/22 Diastolic dysfunction Gross hematuria HTN (hypertension) Lower urinary tract symptoms (LUTS) Prostate cancer PVCs (premature ventricular contractions) 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 Surgical History (Updated 07/02/20 @ 19:48 by Marcelina Sharpe MD) S/P PTCA (percutaneous transluminal coronary angioplasty) Family History (Updated 10/20/19 @ 08:42 by Shameka Quinones RN) Diabetes Father CAD (coronary artery disease) Myocardial infarction Hypertension Stroke Social History Smoking and tobacco/nicotine status: former use of tobacco/nicotine Alcohol intake: never Substance/Drug Use: unknown Adopted: No Caregiver/support person: No Lives independently: No Household members: spouse Marital status: Current occupational status: retired Pertinent Exam Findings alert and oriented x 3 Irregularly irregular Conscious Sedation Assessment Anesthesia team available for procedure Recommendations Surgery/Procedure today (CARIDAD/ Cardioversion) Coding Level of Care Code Acute Code for Chg Fwd Diagnoses
--- NOTE | 2023-02-22 12:34 | PM.PROC ---
Procedure Note: Date of procedure: 02/22/23 Pre-procedure diagnosis: Atrial fibrillation Post-procedure diagnosis: same Procedure: After anesthesia team sedated the patient, we proceeded with transesophageal echocardiogram probe intubation. Left atrial appendage thrombus was ruled out. We then proceeded with synchronized cardioversion with 200 J of energy. 2 shocks were delivered. Patient briefly converted to normal sinus rhythm however converted back to atrial fibrillation. Complications: None Condition: stable Disposition: same day (Home) Coding Level of Care Code Acute Code for [facility] [place]
[2023-02-22 12:35] VITALS: BP 89/62; PULSE 75; RESP 14; TEMP 36.1; O2SAT 99
--- NOTE | 2023-02-22 12:43 | ECG_ITS ---
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 Measurements Intervals [place] Rate: 80 P: 0 SC: 0 QRS: 8 QRSD: 107 T: 25 QT: 411 QTc: 475 Interpretive Statements ATRIAL FIBRILLATION NONSPECIFIC T-WAVE ABNORMALITY Compared to ECG 02/22/2023 12:06:16 T-wave abnormality now present Myocardial infarct finding no longer present Electronically Signed On 02-22-2023 13:42:51 CDT by Alex Daley M.D. [id number]
[2023-02-22 12:48] VITALS: BP 98/70; PULSE 93; RESP 14; O2SAT 97
[2023-02-22 12:57] VITALS: BP 113/70; PULSE 85; RESP 16; O2SAT 98
== END 2023-02-22 13:40 | disposition home or self-care (01) ==
PROVIDERS: PCP Nurse Practitioner Family; Visit Provider Internal Medicine
PROC: (CPT 93312; principal; 2023-02-22 12:00)
PROC: 5A2204Z Restoration of Cardiac Rhythm, Single (ICD-10-PCS; 2023-02-22 12:00)
DX: I48.91 Unspecified atrial fibrillation (principal); Z79.82 Long term (current) use of aspirin; Z79.84 Long term (current) use of oral hypoglycemic drugs; I25.10 Atherosclerotic heart disease of native coronary artery without angina pectoris; Z95.1 Presence of aortocoronary bypass graft; I10 Essential (primary) hypertension; Z85.46 Personal history of malignant neoplasm of prostate; K21.9 Gastro-esophageal reflux disease without esophagitis; E11.9 Type 2 diabetes mellitus without complications; E78.5 Hyperlipidemia, unspecified; Z87.891 Personal history of nicotine dependence
CPT/HCPCS: 36416; 82962; 92960; 93005; 93312; 93320; 93325; J2704; J7030

== ENCOUNTER → 2023-02-28 12:13 | Outpatient (BNVA) | payer OTHER, SELFPAY | PROVIDERS: PCP Nurse Practitioner Family; Visit Provider Nurse Practitioner Family | DX: I48.91 Unspecified atrial fibrillation (principal); Z87.891 Personal history of nicotine dependence | CPT/HCPCS: 93005; 99213 ==

== ENCOUNTER → 2023-04-04 09:32 | Outpatient (BNVA) | payer OTHER, SELFPAY | PROVIDERS: PCP Nurse Practitioner Family; Visit Provider Nurse Practitioner Family | DX: I48.19 Other persistent atrial fibrillation (principal); Z79.01 Long term (current) use of anticoagulants; Z87.891 Personal history of nicotine dependence | CPT/HCPCS: 99213 ==

== ENCOUNTER 2023-04-30 10:19 | Outpatient (CLI) | payer OTHER, SELFPAY ==
--- NOTE | 2023-04-30 10:30 | MR_ITS ---
WS: [id number] MRI LUMBAR SPINE NONCONTRAST TECHNIQUE: Sagittal T1, T2 and STIR imaging. Axial T1 and T2 imaging. CLINICAL INFORMATION: WORSENING LUMBAR PAIN W/O RELIEF W/TREATMENT COMPARISON: None. FINDINGS: Mild lumbar curve. No acute compression. No high-grade central canal stenosis. Disc bulging worse at L4-L5 and L5-S1. Mild central canal stenosis in the cervical spine due to small protrusions at C3-C4 C4-C5 and C5-C6. Prior sternotomy. T12-L1: Mild disc bulging with central disc protrusion. Slight effacement of ventral thecal sac. Smal l annular fissure. Foramen are patent. L1-L2: Mild disc bulging with slight narrowing of the LEFT subarticular recess. Mild facet arthropath y. Mild RIGHT foraminal narrowing. LEFT foramen is patent. L2-L3: No significant disc bulging. Mild facet arthropathy. Spinal canal and foramen are patent. Mild facet arthropathy. L3-L4: Mild annular bulging. Narrowing of the LEFT greater than RIGHT subarticular recess. Mild facet arthropathy. Mild LEFT foraminal narrowing. L4-L5: Mild disc bulging with mild central canal stenosis. Narrowing of the subarticular recess bilat erally. Moderate facet arthropathy. Small facet effusions. LEFT foraminal protrusion impinges the exi ting LEFT L4 nerve root with moderate to severe LEFT foraminal narrowing. RIGHT foramen is patent. L5-S1: Mild disc bulging with osteophytic ridging. Slight effacement of ventral thecal sac. Slight im pingement on traversing RIGHT greater than LEFT S1 nerve roots. Moderate RIGHT and mild LEFT foramina l narrowing. Mild facet arthropathy. Visualized pelvic bony structures: Normal. Paravertebral soft tissues: Normal. IMPRESSION: 1. Mild lumbar curve. No acute compression. 2. Prominent LEFT foramen protrusion L4-5 impinges the exiting LEFT L4 nerve root with moderate to s evere LEFT foraminal narrowing. 3. Mild central canal stenosis L4-5 due to mild disc bulging with facet arthropathy and ligamentum f lavum hypertrophy. Narrowing of the LEFT subarticular recess. 4. Moderate RIGHT L5-S1 foraminal narrowing impinges the exiting RIGHT L5 nerve root. 5. Mild LEFT L3-4 foraminal narrowing. 6. Moderate facet arthropathy L4-5 with small facet effusions.
== END 2023-04-30 10:20 | disposition home or self-care (01) ==
LOC: RAD 10:20
PROVIDERS: PCP Nurse Practitioner Family; Visit Provider Nurse Practitioner Family
DX: M51.26 Other intervertebral disc displacement, lumbar region (principal); M48.061 Spinal stenosis, lumbar region without neurogenic claudication
CPT/HCPCS: 72148; 99214

== ENCOUNTER 2023-10-10 13:59 | Emergency (ER) | payer OTHER, MEDICARE, SELFPAY ==
[2023-10-10 14:32] VITALS: BP 133/70; PULSE 53; RESP 16; TEMP 36.7; O2SAT 97
--- NOTE | 2023-10-10 15:46 | XRR_ITS ---
PROCEDURE INFORMATION: Exam: XR Right Tibia and Fibula Exam date and time: 10/10/2023 3:53 PM Age: 78 years old Clinical indication: Injury or trauma; Blunt trauma; Lower leg; Right; Injury details: Fall 10 days ago TECHNIQUE: Imaging protocol: Radiologic exam of the right tibia and fibula. Views: 2 views. COMPARISON: No relevant prior studies available. FINDINGS: Bones/joints: There is a comminuted fracture involving the proximal aspect of the fibula. No other fracture identified. Soft tissues: Normal. XR/XR tibia fibula RT 2V [id number] IMPRESSION: Acute comminuted fracture of the proximal fibula
--- NOTE | 2023-10-10 16:10 | W.ED.EXTPRO ---
HPI - Extremity Problem General: Chief complaint: Extremity Injury, Lower Stated complaint: right leg pain Time Seen by Provider: 10/10/23 15:46 Source: patient Mode of arrival: ambulatory Limitations: no limitations History of Present Illness: 78-year-old male who fell in his yard last states he had some slight pain in his right leg since then he states he is able to walk he does have some pain when he twists. [facility] and was told it was broken and come to the ER. He is walked to the room and denies any pain currently denies any other injuries Associated symptoms: Deny chest pain, fever(s) or rash Review of Systems Const: Denies: fever(s), chills, body aches or change in appetite ENMT: Denies: throat pain or dental pain Card: Denies: chest pain Resp: Denies: dyspnea GI: Denies: abdominal pain, nausea, vomiting or diarrhea Musc: Reports: extremity pain; Denies: neck pain or back pain Skin/Breast: Denies: rash Neuro: Denies: headache(s) PFSH ED PFSH: Medical History Atrial fibrillation ASHD (arteriosclerotic heart disease) HTN (hypertension) Aortic stenosis AVR with 25 bioprosthetic valve 10/18/22 PVCs (premature ventricular contractions) Diastolic dysfunction CAD (coronary artery disease) CABG x3: HORTA to LAD, SVG to 1st OM and SVG to PDA by Dr Patterson on 10/18/22 Gross hematuria Prostate cancer Lower urinary tract symptoms (LUTS) 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 Surgical History S/P PTCA (percutaneous transluminal coronary angioplasty) Family History Father Diabetes Other CAD (coronary artery disease) Hypertension Myocardial infarction Stroke Social History Smoking and tobacco/nicotine status: former use of tobacco/nicotine Alcohol intake: never Substance/Drug Use: unknown Adopted: No Caregiver/support person: No Lives independently: No Household members: spouse Marital status: Current occupational status: retired Physical Exam Const: COMMON NORMALS: no acute distress, patient oriented x3 and healthy appearing Neck/C-Spine: COMMON NORMALS: full ROM and supple Chest: COMMONS NORMALS: normal inspection of the chest Resp: COMMON NORMALS: normal respiratory effort Extremity: COMMON NORMALS: normal to inspection and full ROM NARRATIVE EXTREMITY EXAM: Slight tenderness to right leg no obvious deformity distal pulses intact Neuro: COMMON NORMALS: patient oriented x3, moves all extremities and no focal motor deficits Psych: COMMON NORMALS: mental status grossly normal, Normal thought process present and cooperative THOUGHT PROCESS: Normal thought process present Skin: COMMON NORMALS: no rashes or lesions noted and no wounds GENERAL SKIN EXAM: no rashes or lesions noted Course Vital Signs: Vital signs: Vital Signs Temperature 98.1 F 10/10/23 14:32 Pulse Rate 53 L 10/10/23 14:32 Respiratory Rate 16 10/10/23 14:32 Blood Pressure 133/70 10/10/23 14:32 Pulse Oximetry 97 10/10/23 14:32 MDM - Extremity (Nontraumatic) Medical Decision Making Patient presents here with a fibular fracture he is well-appearing here we will place him in a knee immobilizer will give him crutches he is to be nonweightbearing we will get him follow-up orthopedics. XR interpretation done by ED provider, pending radiology final review ED provider radiology interpretation(s): Proximal fibula fracture Discharge Plan Discharge Patient Disposition: Home Clinical Impression: Closed right fibular fracture Condition: Stable Prescriptions: No Action pantoprazole 40 mg tablet,delayed release (DR/EC) 40 mg PO DAILY cranberry 500 mg capsule 500 mg PO DAILY Rx Instructions: administer with meals aspirin [Aspir-81] 81 mg tablet,delayed release (DR/EC) 81 mg PO DAILY glipizide 10 mg tablet 10 mg PO BID tamsulosin 0.4 mg capsule 0.4 mg PO BID omega-3 fatty acids [Fish Oil Concentrate] 1,000 mg capsule 2,000 mg PO BID metformin 850 mg tablet 850 mg PO BID Hold Instructions: Resume on 09/21/22. mulitivitamin 1 tab PO DAILY nitroglycerin 0.4 mg tablet, sublingual 0.4 mg sublingual Q5M PRN (Reason: Chest Pain) Rx Instructions: do not exceed 3 doses per episode Tart Lei Extract 1,000 mg capsule 1,000 mg PO DAILY Eliquis 5 mg tablet 5 mg PO BID ferrous sulfate 325 mg (65 mg iron) tablet 325 mg PO DAILY carvedilol 3.125 mg tablet 6.25 mg PO BID Rx Instructions: must administer with a meal/food furosemide [Lasix] 20 mg tablet 20 mg PO DIRECTED Qty: 270 3RF Rx Instructions: take 40mg (2tabs) in the morning and 20mg (1tab) at 2:00pm potassium chloride 20 mEq tablet extended release 20 meq PO DAILY Qty: 90 3RF enoxaparin [Lovenox] 100 mg/mL syringe 100 mg SUBCUT Q12H Qty: 4 0RF Rx Instructions: Last dose of Eliquis 08/03/23 08/04/23 One injection in AM & PM 08/05/23 One injections in AM & PM atorvastatin 80 mg Tablet 80 mg PO DAILY ergocalciferol (vitamin D2) 10 mcg (400 unit) Tablet 10 mcg PO DAILY ondansetron 4 mg tablet,disintegrating 4 mg PO Q8H PRN (Reason: Nausea And Vomiting) pomegran fruit xt-pomegra seed 250 mg Capsule 1 cap PO DAILY magnesium oxide 400 mg magnesium Tablet 200 mg PO DAILY amiodarone 400 mg tablet 400 mg PO DAILY 90 Days Qty: 90 1RF Discharge Orders: Discharge ED (Routine); Ordered 10/10/23 Ordered By: Fela Meyers Referrals: Lila Salmeron FNP [Primary Care Provider] - Reyes Pablo DO [Physician] - 4-7 days Discharge Diet: Advance as tolerated Discharge Activity: Resume usual activity Patient Instructions: Leg Fracture (ED) Coding Level of Care Code ED Movement Education Specialist for Reg Rodríguez
[2023-10-10 16:23] VITALS: PULSE 50; O2SAT 98
[2023-10-10 16:24] VITALS: PULSE 50; O2SAT 98
--- NOTE | 2023-10-10 16:25 | PC.NURSE ---
pt refused crutches, states has set at home. pt transported via wheelchair.
--- NOTE | 2023-10-10 21:03 | DCPLANNER ---
Message sent to Ortho for a follow up/referral with ortho/pardeep RT closed fibula fracture
== END 2023-10-10 16:25 | disposition home or self-care (01) ==
PROVIDERS: Emergency Provider Emergency Medicine; PCP Nurse Practitioner Family
DX: S82.401A Unspecified fracture of shaft of right fibula, initial encounter for closed fracture (principal); Z79.82 Long term (current) use of aspirin; Z79.84 Long term (current) use of oral hypoglycemic drugs; Z79.01 Long term (current) use of anticoagulants; Z87.891 Personal history of nicotine dependence; I10 Essential (primary) hypertension; I25.10 Atherosclerotic heart disease of native coronary artery without angina pectoris; Z95.1 Presence of aortocoronary bypass graft; Z85.46 Personal history of malignant neoplasm of prostate; X58.XXXA Exposure to other specified factors, initial encounter
CPT/HCPCS: 29530; 73590; 99283

== ENCOUNTER → 2023-10-15 13:57 | Outpatient (BNVA) | payer OTHER, SELFPAY | PROVIDERS: PCP Nurse Practitioner Family; Referring Provider Emergency Medicine; Visit Provider Orthopaedic Surgery | DX: S82.831A Other fracture of upper and lower end of right fibula, initial encounter for closed fracture (principal); W19.XXXA Unspecified fall, initial encounter; Y92.007 Garden or yard of unspecified non-institutional (private) residence as the place of occurrence of the external cause | CPT/HCPCS: 99203 ==

== ENCOUNTER → 2023-10-16 10:11 | Outpatient (BNVA) | payer OTHER, SELFPAY | PROVIDERS: PCP Nurse Practitioner Family; Referring Provider Nurse Practitioner Family; Visit Provider Surgery | DX: R11.2 Nausea with vomiting, unspecified (principal) | CPT/HCPCS: 99204 ==

== ENCOUNTER → 2023-11-05 12:53 | Outpatient (BNVA) | payer OTHER, SELFPAY | PROVIDERS: PCP Nurse Practitioner Family; Visit Provider Orthopaedic Surgery | DX: S82.409D Unspecified fracture of shaft of unspecified fibula, subsequent encounter for closed fracture with routine healing (principal); S82.451D Displaced comminuted fracture of shaft of right fibula, subsequent encounter for closed fracture with routine healing; X58.XXXD Exposure to other specified factors, subsequent encounter | CPT/HCPCS: 73590; 99213 ==

== ENCOUNTER 2023-11-06 10:07 | Day surgery (SDC) | payer OTHER, SELFPAY ==
[2023-11-06 10:25] VITALS: BP 145/71; PULSE 50; RESP 18; TEMP 37; O2SAT 95; BMI 31.1
--- NOTE | 2023-11-06 10:25 | W.PM.OPSUD ---
Surgery/Procedure H&P Update DATE OF PROCEDURE: November 06, 2023 DATE H&P PERFORMED: 10/15/22 H&P UPDATE INFORMATION: I have reviewed H&P completed within last 30 days, I have examined patient prior to procedure, No changes to prior documentation and H&P is in [facility] EMR on date indicated PLANNED PROCEDURE: Operation Date: 11/06/23 11:40 Proposed Procedures p EGD 70722, R11.2(Not Applicable) - Fortino Remy MD
[2023-11-06] MEDS: sodium chloride 0.9% 1,000 ML 30 ML IV (10:32)
--- NOTE | 2023-11-06 10:38 | ANES.PREANE2 ---
Pre-Anesthetic Assessment Height/Weight: Height 1.83 m Weight 104.326 kg Temp Pulse Resp BP Pulse Ox O2 Del Method 98.6 F 50 L 18 145/71 95 Room Air 11/06/23 10:25 11/06/23 10:25 11/06/23 10:25 11/06/23 10:25 11/06/23 10:25 11/06/23 10:25 Operation Date: 11/06/23 11:40 Proposed Procedures p EGD 98660, R11.2(Not Applicable) - Fortino Remy MD Familial anesthetic complications: None Was Beta Markus taken within 24 hours: Yes Was Clonidine taken within 24 hours: N/A Last intake: Intake Last Liquid Date 11/05/23 Last Liquid Time 16:00 Last Solid Date 11/05/23 Last Solid Time 16:00 Social No alcohol and No tobacco Exam alert, oriented x 3, clear to auscultation bilaterally and regular rate & rhythm (eloise) Airway Mallampati: Class II Dentition: other (no teeth) CV/HEM Atrial Fibrillation, Coronary Artery Disease (CABG last year), Congestive Heart Failure and Hypertension Bioprosthetic valve placed last year Metabolic Diabetes Mellitus and Hyperlipidemia Anesthetic Plan ASA status: 4 Anesthesia: MAC Risk of > 500 ml blood loss (7ml/kg in children): No Medications/Allergies Home Medications Medication Instructions Recorded Confirmed Last Taken Type aspirin 81 mg tablet,delayed 81 mg PO DAILY 10/20/19 11/06/23 11/06/23 History release (Aspir-) cranberry 500 mg capsule 500 mg PO DAILY 10/20/19 11/06/23 11/06/23 History glipizide 10 mg tablet 10 mg PO BID 10/20/19 11/06/23 11/04/23 History pantoprazole 40 mg tablet,delayed 40 mg PO DAILY 10/20/19 11/06/23 11/06/23 History release tamsulosin 0.4 mg capsule 0.4 mg PO BID 10/20/19 11/06/23 11/06/23 History omega-3 fatty acids 1,000 mg 2,000 mg PO BID 06/28/20 11/06/23 11/06/23 History capsule (Fish Oil Concentrate) metformin 850 mg tablet 850 mg PO BID 09/13/22 11/06/23 11/04/23 History mulitivitamin 1 tab PO DAILY 09/13/22 11/06/23 11/06/23 History nitroglycerin 0.4 mg sublingual 0.4 mg sublingual Q5M PRN Chest 09/13/22 11/06/23 11/04/23 History tablet Pain sour lei extract 1,000 mg 1,000 mg PO DAILY 09/13/22 11/06/23 11/06/23 History capsule (Tart Lei Extract) apixaban 5 mg tablet (Eliquis) 5 mg PO BID 12/04/22 11/06/23 11/03/23 History furosemide 20 mg tablet (Lasix) 20 mg PO DIRECTED #270 tabs 01/24/23 11/06/23 11/06/23 Rx potassium chloride 20 mEq 20 meq PO DAILY #90 tabs 01/24/23 11/06/23 11/06/23 Rx tablet,extended release atorvastatin 80 mg tablet 80 mg PO DAILY 02/21/23 11/06/23 11/06/23 History magnesium oxide 200 mg PO DAILY 02/21/23 11/06/23 11/06/23 History ondansetron 4 mg disintegrating 4 mg PO Q8H PRN Nausea And Vomiting 02/21/23 11/06/23 11/02/23 History tablet pomegran fruit xt-pomegra seed 250 1 cap PO DAILY 02/21/23 11/06/23 11/06/23 History mg capsule amiodarone 400 mg tablet 400 mg PO DAILY 90 days #90 tabs 02/22/23 11/06/23 11/06/23 Rx carvedilol 3.125 mg tablet 6.25 mg PO BID 04/04/23 11/06/23 11/06/23 History ferrous sulfate 325 mg (65 mg 325 mg PO DAILY 04/30/23 11/06/23 11/06/23 History iron) tablet ascorbic acid (vitamin C) 500 mg 500 mg PO DAILY 11/04/23 11/06/23 11/06/23 History tablet cholecalciferol (vitamin D3) 10 10 mcg PO DAILY 11/04/23 11/06/23 11/06/23 History mcg (400 unit) tablet finasteride 5 mg tablet 5 mg PO DAILY 11/04/23 11/06/23 11/06/23 History meclizine 25 mg chewable tablet 12.5 mg PO QID PRN Dizziness Or 11/04/23 11/06/23 11/06/23 History Vertigo Allergies Allergy/AdvReac Type Severity Reaction Status Date / Time No Known Allergies Allergy Verified 11/06/23 10:21 Current Medications Generic Name Dose Route Start Last Admin Trade Name Freq PRN Reason Stop Dose Admin Sodium Chloride 1,000 mls @ 30 mls/hr 11/06/23 10:30 11/06/23 10:32 Sodium Chloride 0.9% IV 30 mls/hr .Q24H DAYSI Administration PFSH Anesthesia Medical History Atrial fibrillation ASHD (arteriosclerotic heart disease) HTN (hypertension) Aortic stenosis AVR with 25 bioprosthetic valve 10/18/22 PVCs (premature ventricular contractions) Diastolic dysfunction CAD (coronary artery disease) CABG x3: HORTA to LAD, SVG to 1st OM and SVG to PDA by Dr Patterson on 10/18/22 Gross hematuria Prostate cancer Lower urinary tract symptoms (LUTS) 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 Surgical History S/P PTCA (percutaneous transluminal coronary angioplasty) Family History Father Diabetes Other CAD (coronary artery disease) Hypertension Myocardial infarction Stroke Social History Smoking and tobacco/nicotine status: unknown if used tobacco/nicotine Alcohol intake: never Substance/Drug Use: unknown Adopted: No Caregiver/support person: No Lives independently: No Household members: spouse Marital status: Current occupational status: retired Data Anesthesia Cardiac Studies: Echocardiogram 01/29/23 Echocardiogram Ultrasound 08/01/22 Transesophageal Echocardiogram 02/22/23 Cardiac Event Monitor 01/22/23
[2023-11-06 11:03] VITALS: BP 113/63; PULSE 48; RESP 16; TEMP 36.4; O2SAT 94
[2023-11-06 11:06] LABS: Glucose Point of Care 165 mg/dL (70-110)
--- NOTE | 2023-11-06 11:10 | ANE.PACU2 ---
Inpatient post-anesthesia follow up: Airway intact: Yes Vital signs: Temperature 97.5 F Pulse Rate 48 Respiratory Rate 16 Blood Pressure 113/63 Pulse Oximetry 98 Oxygen Delivery Me thod Room Air Oxygen Flow Rate Fraction of Inspir ed Oxygen Hydration adequate: Yes Nausea and vomiting: No Pain level: 0 Mental status: Baseline
[2023-11-06 11:22] VITALS: BP 101/57; PULSE 51; RESP 18; O2SAT 96
== END 2023-11-06 11:49 | disposition home or self-care (01) ==
PROVIDERS: PCP Nurse Practitioner Family; Visit Provider Surgery
PROC: 0DJ08ZZ Inspection of Upper Intestinal Tract, Via Natural or Artificial Opening Endoscopic (ICD-10-PCS; CPT 43235; principal; 2023-11-06 11:40)
DX: R11.2 Nausea with vomiting, unspecified (principal); K31.89 Other diseases of stomach and duodenum; K29.50 Unspecified chronic gastritis without bleeding; I48.91 Unspecified atrial fibrillation; I25.10 Atherosclerotic heart disease of native coronary artery without angina pectoris; Z95.1 Presence of aortocoronary bypass graft; I11.0 Hypertensive heart disease with heart failure; I50.9 Heart failure, unspecified; Z95.2 Presence of prosthetic heart valve; E11.9 Type 2 diabetes mellitus without complications; E78.5 Hyperlipidemia, unspecified
CPT/HCPCS: 36416; 43239; 82962; 88305; J2704; J7030

== ENCOUNTER → 2023-11-08 09:24 | Outpatient (BNVA) | payer OTHER, SELFPAY | PROVIDERS: PCP Nurse Practitioner Family; Visit Provider Nurse Practitioner Family | DX: I25.10 Atherosclerotic heart disease of native coronary artery without angina pectoris (principal); I35.0 Nonrheumatic aortic (valve) stenosis; I48.19 Other persistent atrial fibrillation; Z79.01 Long term (current) use of anticoagulants; I11.9 Hypertensive heart disease without heart failure | CPT/HCPCS: 99214 ==

== ENCOUNTER → 2023-11-26 12:32 | Outpatient (BNVA) | payer OTHER, SELFPAY | PROVIDERS: PCP Nurse Practitioner Family; Visit Provider Surgery | DX: A04.8 Other specified bacterial intestinal infections (principal); Z09 Encounter for follow-up examination after completed treatment for conditions other than malignant neoplasm | CPT/HCPCS: 99213 ==

== ENCOUNTER 2024-10-07 12:41 | Outpatient (CLI) | payer OTHER, SELFPAY ==
--- NOTE | 2024-10-07 12:29 | USR_ITS ---
PROCEDURE INFORMATION: Exam: US Duplex Right Lower Extremity Arteries Or Arterial Bypass Grafts Exam date and time: 10/07/2024 12:34 PM Age: 79 years old Clinical indication: Other: Discoloration of right foot; Additional info: Changes in skin color TECHNIQUE: Imaging protocol: Right Real-time duplex scan of the arteries or arterial bypass grafts of the right lower extremity with 2-D scott scale, color Doppler flow and spectral waveform analysis. Images documented and saved. COMPARISON: CR XR tibia fibula RT 2V [id number] 11/05/2023 1:03 PM FINDINGS: Right common femoral artery: No occlusion or significant stenosis. Normal waveform. No pseudoaneurysm in the inguinal region. Peak systolic velocity 89 cm/sec. Right superficial femoral artery: No occlusion or significant stenosis. Normal waveform. Peak systolic velocity 60-107 cm/sec. Right popliteal artery: No occlusion or significant stenosis. Biphasic waveform. Peak systolic velocity 76 cm/sec. Right calf/foot arteries: Monophasic waveform with spectral broadening in the posterior tibial artery with peak systolic velocity 34 cm/sec. Monophasic waveform with spectral broadening in the dorsalis pedis artery with peak systolic velocity 58 cm/sec. Right CORRINA unable to be obtained due to noncompressible arteries. Soft tissues: No hematoma or collection. US/[place] [id number] IMPRESSION: 1. Monophasic waveforms in the posterior tibial and dorsalis pedis arteries with decreased flow velocities, suggestive of areas of moderate to severe stenosis. 2. Right CORRINA unable to be obtained due to noncompressible arteries.
== END 2024-10-07 12:42 | disposition home or self-care (01) ==
LOC: RAD 12:41
PROVIDERS: PCP Nurse Practitioner Family; Visit Provider Nurse Practitioner Family
DX: I70.211 Atherosclerosis of native arteries of extremities with intermittent claudication, right leg (principal); R93.89 Abnormal findings on diagnostic imaging of other specified body structures
CPT/HCPCS: 93926

== ENCOUNTER → 2025-01-19 16:12 | Outpatient (BNVA) | payer OTHER, SELFPAY | PROVIDERS: PCP Nurse Practitioner Family; Visit Provider Internal Medicine Cardiovascular Disease | DX: I10 Essential (primary) hypertension (principal); I35.0 Nonrheumatic aortic (valve) stenosis; I48.91 Unspecified atrial fibrillation; E11.21 Type 2 diabetes mellitus with diabetic nephropathy; Z87.891 Personal history of nicotine dependence; Z79.01 Long term (current) use of anticoagulants; Z79.84 Long term (current) use of oral hypoglycemic drugs | CPT/HCPCS: 99214 ==

== ENCOUNTER 2025-03-22 10:40 | Inpatient (IN) | payer OTHER, SELFPAY ==
[2025-03-22] VITALS (8 sets, daily range): BP systolic 141–183; BP diastolic 66–100; PULSE 58–76; RESP 18; TEMP 36.7–36.9; O2SAT 94–100; BMI 33.9; BMI 30.9
--- NOTE | 2025-03-22 10:44 | XR_ITS ---
WS: [email or web address] XR knee LT 3V* [id number] REASON FOR EXAM: fall, pain FINDINGS: Presumed large joint effusion. No acute fracture identified. Patella and tibial plateaus are intact. 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 XR/XR knee LT 3V* [id number] IMPRESSION: Joint effusion without other bone or joint abnormality.
--- NOTE | 2025-03-22 10:44 | XR_ITS ---
NOTE: Report was unsigned for reason: Order was edited. Original Signature date and time was: 03/22/25 @ 11:41 WS: [email or web address] XR wrist RT min 3V* [id number] REASON FOR EXAM: fall, pain FINDINGS: No acute fracture identified. Except for the involvement in the moderate osteoarthritis at the base of the thumb, the joint spaces of the wrist are intact and relatively well preserved. [facility] XR/XR wrist LT min 3V* [id number] IMPRESSION: No acute bone or joint abnormality.
--- NOTE | 2025-03-22 10:44 | XR_ITS ---
WS: [email or web address] XR chest 1V portable [id number] REASON FOR EXAM: Weakness FINDINGS: Sternal sutures. Cardiomegaly. Mild pulmonary venous congestion. Previous coronary artery bypass and aortic valve replacement. Coronary artery stents. Calcified granulomatous disease bilaterally. No acute pulmonary parenchymal or pleural abnormality. XR/XR chest 1V portable [id number] IMPRESSION: Cardiomegaly without acute chest abnormality.
--- NOTE | 2025-03-22 10:51 | W.ED.WEAKNES ---
HPI - Weakness General: Chief complaint: Weakness Stated complaint: weakness - falls - skin tears Time Seen by Provider: 03/22/25 10:42 History of Present Illness: This is a 79-year-old man with a history of atrial fibrillation, chronic anticoagulation on Eliquis, hypertension, aortic stenosis with bioprosthetic valve replacement, diastolic heart failure, coronary artery disease who presents emergency room by ambulance with complaints of weakness, multiple falls, knee and wrist pain. No fevers. No dysuria. No altered mental status. No focal motor deficits. No chest pain. No abdominal pain. He reports no head injury. Related Data Home Medications ?Medication ?Instructions ?Recorded ?Confirmed aspirin 81 mg tablet,delayed 81 mg PO DAILY 10/20/19 01/19/25 release (Aspir-) cranberry 500 mg capsule 500 mg PO DAILY 10/20/19 01/19/25 glipizide 10 mg tablet 10 mg PO BID 10/20/19 01/19/25 tamsulosin 0.4 mg capsule 0.4 mg PO BID 10/20/19 01/19/25 metformin 850 mg tablet 850 mg PO BID 09/13/22 01/19/25 mulitivitamin 1 tab PO DAILY 09/13/22 01/19/25 nitroglycerin 0.4 mg sublingual 0.4 mg sublingual Q5M PRN Chest 09/13/22 11/26/23 tablet Pain sour lei extract 1,000 mg 1,000 mg PO DAILY 09/13/22 01/19/25 capsule (Tart Lei Extract) apixaban 5 mg tablet (Eliquis) 5 mg PO BID 12/04/22 01/19/25 atorvastatin 80 mg tablet 80 mg PO DAILY 02/21/23 01/19/25 carvedilol 3.125 mg tablet 6.25 mg PO BID 04/04/23 01/19/25 ferrous sulfate 325 mg (65 mg 325 mg PO DAILY 04/30/23 01/19/25 iron) tablet ascorbic acid (vitamin C) 500 mg 500 mg PO DAILY 11/04/23 01/19/25 tablet cholecalciferol (vitamin D3) 10 10 mcg PO DAILY 11/04/23 01/19/25 mcg (400 unit) tablet finasteride 5 mg tablet 5 mg PO DAILY 11/04/23 01/19/25 levothyroxine 75 mcg tablet 75 mcg PO DAILY 07/20/24 01/19/25 (Levoxyl) sertraline 50 mg tablet 50 mg PO DAILY 07/20/24 01/19/25 cyanocobalamin (vitamin B-12) 100 100 mcg PO DAILY 01/19/25 01/19/25 mcg tablet melatonin 3 mg capsule 3 mg PO DAILY 01/19/25 01/19/25 prazosin 1 mg capsule 1 mg PO BID 01/19/25 01/19/25 Previous Rx's ?Medication ?Instructions ?Recorded amiodarone 200 mg tablet 200 mg PO DAILY #90 tabs 11/08/23 hydrocodone 5 mg-acetaminophen 325 1 tab PO Q8H PRN pain #14 tabs 03/22/25 mg tablet polyethylene glycol 3350 17 17 g PO DAILY #510 grams 03/22/25 gram/dose oral powder (Miralax) Allergies Allergy/AdvReac Type Severity Reaction Status Date / Time No Known Allergies Allergy Verified 01/19/25 16:26 Review of Systems Narrative: Constitutional symptoms: Negative except as documented in HPI. Skin symptoms: Negative except as documented in HPI. Eye symptoms: Negative except as documented in HPI. ENMT symptoms: Negative except as documented in HPI. Respiratory symptoms: Negative except as documented in HPI. Cardiovascular symptoms: Negative except as documented in HPI. Gastrointestinal symptoms: Negative except as documented in HPI. Genitourinary symptoms: Negative except as documented in HPI. Musculoskeletal symptoms: Negative except as documented in HPI. Neurologic symptoms: Negative except as documented in HPI. Psychiatric symptoms: Negative except as documented in HPI. Endocrine symptoms: Negative except as documented in HPI. 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 Skin: Warm, dry. Head: Normocephalic, atraumatic. Neck: Supple, trachea midline. Eye: Extraocular movements are intact. Ears, nose, mouth and throat: mucosa moist. Cardiovascular: Regular, Normal peripheral perfusion. Respiratory: Lungs are clear to auscultation, respirations are non-labored, breath sounds are equal, Symmetrical chest wall expansion. Gastrointestinal: Soft, Nontender, Non distended Musculoskeletal: Some swelling of the left knee. No deformities at the knee or the wrist for which she is complaining of pain. Full range of motion. Neurological: Alert and oriented, No focal neurological deficit observed. Psychiatric: Cooperative, appropriate mood & affect. Course Vital Signs: Vital signs: Vital Signs Temperature 98.1 F 03/22/25 10:43 Pulse Rate 60 03/22/25 10:43 Respiratory Rate 18 03/22/25 10:43 Blood Pressure 152/100 03/22/25 12:39 Pulse Oximetry 94 03/22/25 12:39 Oxygen Delivery Me thod Room Air 03/22/25 10:43 MDM - Weakness Medical Decision Making Medical decision making Patient's reason for coming to the emergency room: Multiple falls, knee pain, wrist pain Social determinants: Patient is retired. Lives alone. I reviewed the patient's medical record. This is a 79-year-old man with a history of atrial fibrillation, chronic anticoagulation on Eliquis, hypertension, aortic stenosis with bioprosthetic valve replacement, diastolic heart failure, coronary artery disease I reviewed the patient's current home meds Eliquis listed in patient's medication list Alternate historians: None Differential diagnosis for patient presenting with generalized weakness including but not limited to and based on the above HPI, review of systems and physical exam: Sepsis. Dehydration. Renal failure. Electrolyte abnormalities. Anemia. Congestive heart failure. Hypotension. Coronary syndrome. Hepatitis. Cirrhosis. Infections such as pneumonia, urinary tract infection, [place] illness, Cellulitis, Viral infections including influenza and Covid-19. Workup: labwork and lab/exam driven imaging ordered to evaluate, rule in and rule out above pathologies. Differential diagnosis including but not limited to and based on the above HPI, review of systems and physical exam: In this patient with a musculoskeletal extremity traumatic injury and x-ray is being ordered to rule out fractures and dislocations. Orders placed to evaluate differential diagnosis based on the above differential, HPI and physical exam EKG: Time 1052. Rate 60. Normal sinus rhythm, nonspecific T wave abnormality, PVCs, normal WA & QRS intervals, This was reviewed and interpreted by myself the ER physician at 1058 Chest x-ray: No acute process. No infiltrate. No pneumothorax. This was reviewed and interpreted by myself the emergency room physician. I also reviewed the radiology report. X-ray of the left knee: Effusion with no bony abnormality. This was reviewed and interpreted by myself the emergency room physician. I also reviewed the radiology report. X-ray of the left wrist: No acute process. This was reviewed and interpreted by myself the emergency room physician. I also reviewed the radiology report. Lab Review: Laboratory results were reviewed and interpreted by myself the emergency room physician. Mild leukocytosis. Mild anemia. No renal failure. Urinalysis negative for infection. Flu COVID and RSV are negative. CK is mildly elevated. Assessment of risk: Level of risk: Moderate to high risk. Patient is elderly, lives at home alone and is on blood thinners. Hospitalization considerations: I considered admission. I discussed with the patient that we could try to get him in the hospital for possible admission to a rehab for physical therapy. He says he would rather go home Reexamination: Patient remained stable. No increased work of breathing. No altered mental status. No focal motor deficits. Assessment and plan: Multiple falls Knee effusion Wrist injury ?Roll p.o. in the emergency room - Discharged home - Discussed findings and plan with patient. Answered any questions. - All laboratory values were reviewed and interpreted personally by myself, the ER physician - All imaging was reviewed and interpreted personally by myself, the ER physician. - Evaluation and treatment of this problem were appropriate in the emergency setting Lab Data 03/22/25 10:58 03/22/25 10:58 Radiology Impressions Chest X-Ray 03/22/25 10:44 IMPRESSION: Cardiomegaly without acute chest abnormality. Knee X-Ray 03/22/25 10:44 IMPRESSION: Joint effusion without other bone or joint abnormality. Wrist X-Ray 03/22/25 10:44 IMPRESSION: No acute bone or joint abnormality. Laboratory Results WBC 11.91 10^3/uL (3.29-11.43) H 03/22/25 10:58 RBC 3.42 10^6/uL (3.85-5.65) L 03/22/25 10:58 Hgb 9.80 g/dL (11.27-16.99) L 03/22/25 10:58 Hct 30.4 % (37-53) L 03/22/25 10:58 MCV 88.9 fl (82-101) 03/22/25 10:58 MCH 28.7 pg (27-33) 03/22/25 10:58 MCHC 32.2 g/dL (30-55) 03/22/25 10:58 RDW 14.8 % (12.1-15.1) 03/22/25 10:58 Plt Count 327 10^3/cmm (157-399) 03/22/25 10:58 MPV 11.0 fL (7.4-10.4) H 03/22/25 10:58 Neut % (Auto) 74.2 % 03/22/25 10:58 Lymph % (Auto) 13.3 % 03/22/25 10:58 Taney % (Auto) 10.2 % 03/22/25 10:58 Eos % (Auto) 1.3 % 03/22/25 10:58 Baso % (Auto) 0.6 % 03/22/25 10:58 Neut # (Auto) 8.84 10^3/uL (1.8-7.7) H 03/22/25 10:58 Lymph # (Auto) 1.6 10^3/uL (0.8-4.8) 03/22/25 10:58 Taney # (Auto) 1.2 10^3/uL (0.2-0.9) H 03/22/25 10:58 Eos # (Auto) 0.2 10^3/uL (0.0-0.8) 03/22/25 10:58 Baso # (Auto) 0.1 10^3/uL (0.0-0.1) 03/22/25 10:58 Nucleated RBC % (auto) 0 % 03/22/25 10:58 Nucleated RBCs # 0.0 /100WBC 03/22/25 10:58 Sodium 139 mmol/L (136-145) 03/22/25 10:58 Potassium 3.2 mmol/L (3.5-5.1) L 03/22/25 10:58 Chloride 103 mmol/L (98-107) 03/22/25 10:58 Carbon Dioxide 27 mmol/L (22-29) 03/22/25 10:58 Anion Gap 12.2 (5-19) 03/22/25 10:58 BUN 15 mg/dL (8-23) 03/22/25 10:58 Creatinine 1.0 mg/dL (0.7-1.2) 03/22/25 10:58 GFR Calculation Not Reportable 03/22/25 10:58 Glucose 171 mg/dL (65-115) H 03/22/25 10:58 Calculated Osmolality 293 mOsm/kg (285-295) 03/22/25 10:58 Lactic Acid 1.6 mmol/L (0.5-2.2) 03/22/25 10:58 Calcium 8.5 mg/dL (8.5-10.5) 03/22/25 10:58 Total Bilirubin 1.0 mg/dL (0.15-1.2) 03/22/25 10:58 AST 41 U/L (0-40) H 03/22/25 10:58 ALT 26 U/L (0-41) 03/22/25 10:58 Alkaline Phosphatase 47 U/L (40-130) 03/22/25 10:58 Creatine Kinase 704 U/L (39-308) H* 03/22/25 10:58 Total Protein 6.6 g/dL (6.6-8.7) 03/22/25 10:58 Albumin 3.1 g/dL (3.5-5.2) L 03/22/25 10:58 Globulin 3.5 g/dL (1.3-4.6) 03/22/25 10:58 Urine Color Dark yellow (Yellow) A 03/22/25 11:10 Urine Appearance Clear (CLEAR) 03/22/25 11:10 Urine pH 5.5 (5-7) 03/22/25 11:10 Ur Specific Grover 1.026 (1.005-1.030) 03/22/25 11:10 Urine Protein 3+ (Negative) A 03/22/25 11:10 Urine Glucose (UA) Negative (Normal) 03/22/25 11:10 Urine Ketones Trace (Negative) 03/22/25 11:10 Urine Blood 2+ (Negative) A 03/22/25 11:10 Urine Nitrate Negative (Negative) 03/22/25 11:10 Urine Bilirubin 1+ (Negative) H 03/22/25 11:10 Urine Urobilinogen 1.0 mg/dL (Negative) 03/22/25 11:10 Ur Leukocyte Esterase Trace (Negative) A 03/22/25 11:10 Urine RBC 11-20 /hpf (0-2) H 03/22/25 11:10 Urine WBC 0-5 /hpf (0-5) 03/22/25 11:10 Ur Squamous Epith Cells 0-5 /hpf (0-5) 03/22/25 11:10 Amorphous Sediment Not Reportable 03/22/25 11:10 Urine Bacteria None seen /hpf (NONE) 03/22/25 11:10 Hyaline Casts 3.30 /lpf 03/22/25 11:10 Influenza A (PCR) Negative (Negative) 03/22/25 11:04 Influenza Type B (PCR) Negative (Negative) 03/22/25 11:04 RSV (PCR) Negative (Negative) 03/22/25 11:04 SARS-CoV-2 (PCR) Negative (Negative) 03/22/25 11:04 All radiology interpretation(s) finalized by discharge Discharge Plan Discharge Patient Disposition: Home Clinical Impression: Multiple falls, Effusion, left knee, Strain of left wrist Condition: Stable Prescriptions: New hydrocodone-acetaminophen 5-325 mg tablet 1 tab PO Q8H PRN (Reason: pain) Qty: 14 0RF Rx Instructions: Take 1/2 to 1 tab every 8 hours as needed for pain polyethylene glycol 3350 [Miralax] 17 gram/dose powder 17 g PO DAILY Qty: 510 0RF Rx Instructions: Take 1 scoop daily while taking pain medications. No Action cranberry 500 mg capsule 500 mg PO DAILY Rx Instructions: administer with meals aspirin [Aspir-81] 81 mg tablet,delayed release (DR/EC) 81 mg PO DAILY glipizide 10 mg tablet 10 mg PO BID tamsulosin 0.4 mg capsule 0.4 mg PO BID metformin 850 mg tablet 850 mg PO BID mulitivitamin 1 tab PO DAILY nitroglycerin 0.4 mg tablet, sublingual 0.4 mg sublingual Q5M PRN (Reason: Chest Pain) Rx Instructions: do not exceed 3 doses per episode Tart Lei Extract 1,000 mg capsule 1,000 mg PO DAILY Eliquis 5 mg tablet 5 mg PO BID ferrous sulfate 325 mg (65 mg iron) tablet 325 mg PO DAILY carvedilol 3.125 mg tablet 6.25 mg PO BID Rx Instructions: must administer with a meal/food amiodarone 200 mg tablet 200 mg PO DAILY Qty: 90 1RF levothyroxine [Levoxyl] 75 mcg tablet 75 mcg PO DAILY sertraline 50 mg tablet 50 mg PO DAILY cyanocobalamin (vitamin B-12) 100 mcg tablet 100 mcg PO DAILY prazosin 1 mg capsule 1 mg PO BID melatonin 3 mg capsule 3 mg PO DAILY ascorbic acid (vitamin C) 500 mg Tablet 500 mg PO DAILY cholecalciferol (vitamin D3) 10 mcg (400 unit) Tablet 10 mcg PO DAILY finasteride 5 mg Tablet 5 mg PO DAILY atorvastatin 80 mg Tablet 80 mg PO DAILY Discharge Orders: Discharge ED (Routine); Ordered 03/22/25 Ordered By: Kiana Cardona Referrals: Lila Salmeron FNP [Primary Care Provider, Family Practice] Discharge Diet: Usual diet Discharge Activity: Increase activity as tolerated Patient Instructions: Fall Prevention for Older Adults (ED), Opioid Safety, Pain Management, Patient Portal & Som[place] Instructions Activity Restrictions/Additional Instructions: Thank you for choosing [facility] for your healthcare needs today. You have been screened and evaluated and felt safe for discharge. Health conditions do change or evolve sometimes and as such it is important that you follow up with your Primary Doctor to be re checked, 3-5 days is a general good time frame for follow up. You are always welcome to return to the ED for re assessment if your symptoms are worsening or you have new concerns Print Language: Liberian Coding Level of Care Code ED Lead Developer for Reg Rodríguez
--- NOTE | 2025-03-22 10:52 | ECG_ITS ---
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 Measurements Intervals [place] Rate: 60 P: 83 MO: 129 QRS: 60 QRSD: 99 T: -1 QT: 352 QTc: 354 Interpretive Statements SINUS RHYTHM WITH OCCASIONAL SUPRAVENTRICULAR PREMATURE COMPLEXES NONSPECIFIC ST & T-WAVE ABNORMALITY Compared to ECG 02/28/2023 12:18:27 Atrial fibrillation no longer present Ventricular premature complex(es) no longer present Aberrant conduction of supraventricular beat(s) no longer present Possible ischemia no longer present T-wave abnormality still present Electronically Signed On 03-24-2025 09:50:29 PRESCHOOL TEACHER'S ASSISTANT by Mary Jo Kimball M.D. [email or web address]
[2025-03-22 11:09] LABS: Hematocrit 30.4 % (37-53); Hemoglobin 9.80 g/dL (11.27-16.99); Mean Corpuscular HGB Conc 32.2 g/dL (30-55); Mean Corpuscular Hemoglobin 28.7 pg (27-33); Mean Corpuscular Volume 88.9 fl (82-101); Nucleated Red Blood Cells % 0 %; Platelet Count 327 10^3/cmm (157-399); Red Blood Count 3.42 10^6/uL (3.85-5.65); White Blood Count 11.91 10^3/uL (3.29-11.43)
[2025-03-22 11:18] LABS: Glucose Urine UA Negative (Normal); Nitrate Urine Negative (Negative); Specific Gravity, Urine 1.026 (1.005-1.030)
[2025-03-22 11:26] LABS: Alanine Aminotransferase 26 U/L (0-41); Albumin Level 3.1 g/dL (3.5-5.2); Alkaline Phosphatase 47 U/L (40-130); Anion Gap 12.2 (5-19); Aspartate Amino Transferase 41 U/L (0-40); Blood Urea Nitrogen 15 mg/dL (8-23); Calcium 8.5 mg/dL (8.5-10.5); Carbon Dioxide 27 mmol/L (22-29); Chloride 103 mmol/L (98-107); Globulin 3.5 g/dL (1.3-4.6); Glucose 171 mg/dL (65-115); Lactic Sepsis W/Reflex 1.6 mmol/L (0.5-2.2); Osmolality Calculated 293 mOsm/kg (285-295); Potassium 3.2 mmol/L (3.5-5.1); Sodium 139 mmol/L (136-145); Total Protein 6.6 g/dL (6.6-8.7)
[2025-03-22] MEDS: HYDROcodone-acetaminophen 10-325 mg Tablet 1 TAB PO (11:47)
[2025-03-22 11:55] LABS: Respiratory Syncytial Virus Ce NEGATIVE (Negative); SARS-CoV-2 PCR NEGATIVE (Negative)
--- NOTE | 2025-03-22 14:58 | CTR_ITS ---
PROCEDURE INFORMATION: Exam: CT Cervical Spine Without Contrast Exam date and time: 03/22/2025 3:13 PM Age: 79 years old Clinical indication: Injury or trauma; Additional info: Fall, weakness chayo hands TECHNIQUE: Imaging protocol: Computed tomography of the cervical spine without contrast. Radiation optimization: All CT scans at this facility use at least one of these dose optimization techniques: automated exposure control; mA and/or kV adjustment per patient size (includes targeted exams where dose is matched to clinical indication); or iterative reconstruction. COMPARISON: No relevant prior studies available. RADIATION DOSE METRICS: Total DLP (mGy-cm): 268 FINDINGS: Bones: No acute fracture. Old fracture in the left 1st rib. Normal alignment of the cervical spine. Marginal disc osteophyte complexes are contributing to spinal stenosis mild at C3-C4, C4-C5 and C6-C7 and moderate at C5-C6 level. Degenerative changes in the uncovertebral and facet joints are contributing to foraminal stenosis (moderate to severe left at C3-C4, moderate bilateral at C5-C6, mild left at C6-C7 level). Lungs: Lung apices are normal. Soft tissues: Unremarkable. CT/CT cervical spin wo con* [id number] IMPRESSION: No acute cervical spine fracture.
--- NOTE | 2025-03-22 14:58 | CTR_ITS ---
PROCEDURE INFORMATION: Exam: CT Head Without Contrast Exam date and time: 03/22/2025 3:13 PM Age: 79 years old Clinical indication: Injury or trauma; Fall; Additional info: Confusion TECHNIQUE: Imaging protocol: Computed tomography of the head without contrast. Radiation optimization: All CT scans at this facility use at least one of these dose optimization techniques: automated exposure control; mA and/or kV adjustment per patient size (includes targeted exams where dose is matched to clinical indication); or iterative reconstruction. COMPARISON: CT cervical spin wo con* [id number] 03/22/2025 3:13 PM RADIATION DOSE METRICS: Total DLP (mGy-cm): 1226.7 FINDINGS: Brain: No acute intracranial hemorrhage. No edema. No mass effect. There are hypodense areas in the bilateral periventricular white matter suggestive of chronic small vessel ischemic changes. Cerebral ventricles: No hydrocephalus. The ventricles and sulci are prominent in size in keeping with brain atrophy. Paranasal sinuses: Visualized sinuses are unremarkable. No fluid levels. Mastoid air cells: No mastoid effusion. Bones: Unremarkable. No acute fracture. Soft tissues: Unremarkable. CT/CT head wo con* [id number] IMPRESSION: No acute intracranial abnormality.
--- NOTE | 2025-03-22 15:03 | CTR_ITS ---
PROCEDURE INFORMATION: Exam: CT Lumbar Spine Without Contrast Exam date and time: 03/22/2025 3:18 PM Age: 79 years old Clinical indication: Injury or trauma; PT is from home, EMS states PT fell x2 days ago. PT C/O left wrist and left knee pain. PT states he uses a walker/wheelchair. PT denies hitting head. ; Additional info: Fall, chayo leg weakness, bowel incontinence TECHNIQUE: Imaging protocol: Computed tomography of the lumbar spine without contrast. Radiation optimization: All CT scans at this facility use at least one of these dose optimization techniques: automated exposure control; mA and/or kV adjustment per patient size (includes targeted exams where dose is matched to clinical indication); or iterative reconstruction. COMPARISON: MR lumbar spine wo con* [id number] 04/30/2023 11:13 AM RADIATION DOSE METRICS: Total DLP (mGy-cm): 1637.9 FINDINGS: Bones/joints: Diminished bone mineralization.No acute lumbar spine fracture. L4 and L5 laminectomies have been performed. Multilevel degenerative disc disease and facet arthropathy. Rightward curvature of the lumbar spine. Multilevel disc bulges. T12-L1 partially calcified left paracentral disc herniation. Foraminal narrowing at L4-S1. Spinal canal at the L4-L5 and L5-S1 levels could be assessed with contrast-enhanced MRI. Kidneys and ureters: Left renal cyst. Soft tissues: Dependent edema and postsurgical changes. CT/CT lumbar spine wo con* [id number] IMPRESSION: No acute lumbar spine fracture. Laminectomies at L4 and L5. COMMENTS: Consistent with the [employer] [place] [employer]'s Incidental Findings Committee white paper (J Am Marifer Radiol 2018): Any incidental renal lesion less than 1 cm or classified as too small to characterize, or any incidental cystic renal lesion characterized as simple-appearing, is likely benign. No follow-up imaging is recommended for these lesions per consensus recommendations based on imaging criteria.
--- NOTE | 2025-03-22 15:03 | CTR_ITS ---
PROCEDURE INFORMATION: Exam: CT Thoracic Spine Without Contrast Exam date and time: 03/22/2025 3:18 PM Age: 79 years old Clinical indication: Injury or trauma; Additional info: Fall, chayo leg weakness, bowel incontinence TECHNIQUE: Imaging protocol: Computed tomography of the thoracic spine without contrast. Radiation optimization: All CT scans at this facility use at least one of these dose optimization techniques: automated exposure control; mA and/or kV adjustment per patient size (includes targeted exams where dose is matched to clinical indication); or iterative reconstruction. COMPARISON: CT cervical spin wo con* [id number] 03/22/2025 3:13 PM RADIATION DOSE METRICS: Total DLP (mGy-cm): 1637.9 FINDINGS: Tubes, catheters and devices: Aortic valvular prosthesis and coronary revascularization. Bones/joints: No acute fracture. Normal alignment. Multilevel degenerative disc disease with a few levels of mild canal stenosis due to small disc herniations and/or disc bulges. T12-L1 left paracentral partially calcified disc herniation. Soft tissues: Unremarkable. Lymph nodes: Calcified lymph nodes are seen suggesting prior granulomatous disease. Pleural spaces: Trace pleural fluid. Dependent septal lines with some dependent asymmetric right ground-glass opacities. Gallbladder and biliary ducts: Possible cholelithiasis. Kidneys and ureters: Left renal cyst. CT/CT thoracic spin wo con* [id number] IMPRESSION: No acute thoracic spine fracture. Trace pleural fluid. Possible trace pulmonary edema versus atypical infection or aspiration.
--- NOTE | 2025-03-22 15:07 | PM.HP ---
Providers/Chief Complaint Primary Care Provider: Lila Salmeron Chief Complaint: weakness - falls - skin tears History of Present Illness Roderick Arnold is a 79 year old male with a past medical history of hypertension, atrial fibrillation, aortic valve stenosis status post TAVR, PTSD, coronary artery disease, status post CABG x 3 with multiple stents, diabetes mellitus type 2, cognitive decline, and morbid obesity who was seen and treated in the ER earlier today. Patient presented with complaints of confusion, last known baseline cognition this prior , fall at home with left wrist and left knee pain, inability to ambulate, and new onset bowel incontinence, and decreased oral intake of food and fluids over the last 4 days. Is also stated by patient's son that he had had intermittent low-grade fevers over the weekend that they were giving Tylenol for. Workup in the ER with WBC 11.91, potassium 3.2, glucose 171, creatinine kinase 704, albumin 3.1. X-ray of left knee and left wrist without acute fracture. EKG with normal sinus rhythm and PVCs. Urine dark yellow with 3+ protein, 2+ blood but negative for nitrites and negative for bacteria. Pending CT head and spine without contrast at time of admission. Patient acknowledges that he is confused, states that we should ask his son that is at the bedside for any history that he is not getting straight. Patient's orientation is x 2. Patient denies current chest pain, shortness of breath, nausea, vomiting, diarrhea, abdominal pain, or syncope. Spoke with patient's son at the bedside and patient's [id number] over the phone who gave very detailed history for this patient. Family states that patient took all of his home medications as normal last night but had to be helped with holding drink with a straw to be able to take these medications. Further workup with PT/OT also pending. [facility], family did bring an updated home medication list with them. Patient will be admitted inpatient given his new onset bowel incontinence, inability to ambulate, and volume depletion-warranting further workup and management. All questions and concerns addressed with the patient and his family at the bedside. Review of Systems General: Reports: 10 or more systems reviewed and unremarkable except in HPI and below Const: Reports: change in appetite Eyes: Reports: blind spots GI: Reports: other (Incontinent of bowel) Musc: Reports: joint pain (Left wrist and left knee) and limited range of motion Neuro: Reports: difficulty walking, frequent falls, confusion and behavioral changes Psych: Reports: change in appetite, memory loss and difficulty concentrating Medications/Allergies Home Medications ?Medication ?Instructions ?Recorded ?Confirmed ?Last Taken ?Type glipizide 10 mg tablet 10 mg PO BID 10/20/19 01/19/25 11/04/23 History tamsulosin 0.4 mg capsule 0.4 mg PO BID 10/20/19 01/19/25 11/06/23 History metformin 850 mg tablet 850 mg PO BID 09/13/22 01/19/25 11/04/23 History sour lei extract 1,000 mg 1,000 mg PO DAILY 09/13/22 01/19/25 11/06/23 History capsule (Tart Lei Extract) apixaban 5 mg tablet (Eliquis) 5 mg PO BID 12/04/22 01/19/25 11/03/23 History atorvastatin 80 mg tablet 80 mg PO DAILY 02/21/23 01/19/25 11/06/23 History ferrous sulfate 325 mg (65 mg 325 mg PO DAILY 04/30/23 01/19/25 11/06/23 History iron) tablet ascorbic acid (vitamin C) 500 mg 500 mg PO DAILY 11/04/23 01/19/25 11/06/23 History tablet cholecalciferol (vitamin D3) 10 10 mcg PO DAILY 11/04/23 01/19/25 11/06/23 History mcg (400 unit) tablet finasteride 5 mg tablet 5 mg PO DAILY 11/04/23 01/19/25 11/06/23 History amiodarone 200 mg tablet 200 mg PO DAILY #90 tabs 11/08/23 01/19/25 Unknown Rx levothyroxine 75 mcg tablet 75 mcg PO DAILY 07/20/24 01/19/25 Unknown History (Levoxyl) sertraline 50 mg tablet 50 mg PO DAILY 07/20/24 01/19/25 Unknown History cyanocobalamin (vitamin B-12) 100 100 mcg PO DAILY 01/19/25 01/19/25 Unknown History mcg tablet melatonin 3 mg capsule 3 mg PO DAILY 01/19/25 01/19/25 Unknown History prazosin 1 mg capsule 1 mg PO BID 01/19/25 01/19/25 Unknown History aspirin 81 mg tablet,delayed 81 mg PO DAILY 03/22/25 03/22/25 03/21/25 History release (Mane Low Dose Aspirin) carbamide peroxide 6.5 % ear drops 5 drp otic (ear) DAILY 03/22/25 03/22/25 Unknown History carvedilol 12.5 mg tablet 6.25 mg PO BID 03/22/25 03/22/25 03/21/25 History cranberry extract 500 mg capsule 500 mg PO DAILY 03/22/25 03/22/25 03/21/25 History furosemide 20 mg tablet See Rx Instructions .Route .COMPLEX 03/22/25 03/22/25 03/21/25 History hydrocodone 5 mg-acetaminophen 325 1 tab PO Q8H PRN pain #14 tabs 03/22/25 Unknown Rx mg tablet magnesium oxide 200 mg PO DAILY 03/22/25 03/22/25 03/21/25 History nqyqagdannum-rhy-onkfl acid-vit 1 tab PO DAILY 03/22/25 03/22/25 03/21/25 History K-lycop 400 mcg-20 mcg-370 mcg tablet (Men's 50 Plus Multivitamin) ondansetron 4 mg disintegrating 4 mg PO Q8H PRN Nausea And Vomiting 03/22/25 03/22/25 Unknown History tablet polyethylene glycol 3350 17 17 g PO DAILY #510 grams 03/22/25 Unknown Rx gram/dose oral powder (Miralax) potassium chloride 20 mEq 20 meq PO DAILY 03/22/25 03/22/25 03/21/25 History tablet,extended release Allergies Allergy/AdvReac Type Severity Reaction Status Date / Time No Known Allergies Allergy Verified 01/19/25 16:26 PFSH Acute PFSH: Medical History (Updated 03/22/25 @ 15:35 by Magalie Wild NP) Atrial fibrillation ASHD (arteriosclerotic heart disease) HTN (hypertension) Aortic stenosis AVR with 25 bioprosthetic valve 10/18/22 PVCs (premature ventricular contractions) Diastolic dysfunction CAD (coronary artery disease) CABG x3: HORTA to LAD, SVG to 1st OM and SVG to PDA by Dr Patterson on 10/18/22 Gross hematuria Prostate cancer Lower urinary tract symptoms (LUTS) 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 Surgical History S/P PTCA (percutaneous transluminal coronary angioplasty) Family History Father Diabetes Other CAD (coronary artery disease) Hypertension Myocardial infarction Stroke Social History Smoking and tobacco/nicotine status: former use of tobacco/nicotine Alcohol intake: never Substance/Drug Use: unknown Adopted: No Caregiver/support person: No Lives independently: No Household members: spouse Marital status: Current occupational status: retired Vitals/I&O/Wt Last Vital Signs Temp 98.1 F 03/22/25 10:43 Pulse 60 03/22/25 10:43 Resp 18 03/22/25 10:43 BP 167/66 03/22/25 14:30 Pulse Ox 98 03/22/25 14:30 O2 Del Method Room Air 03/22/25 14:30 Weight last 48 hrs Weight 113.398 kg Physical Exam Narrative: Disheveled 79-year-old male sitting up in bed, pleasant, conversant and interactive but very confused orientation x 2 HENMT: COMMON NORMALS: normocephalic, atraumatic and Normal external nose present OTHER: Dry mucous membranes Eye: COMMON NORMALS: Equal, round and reactive pupils present OTHER: Decreased vision left eye Neck/C-Spine: COMMON NORMALS: no lymphadenopathy and no JVD Resp: COMMON NORMALS: normal respiratory effort and clear to auscultation bilaterally Cardio: COMMON NORMALS: no JVD, regular rate, S1 normal heart sound present and S2 normal heart sound present GI: COMMON NORMALS: Normal to inspection, nondistended, normoactive bowel sounds present, Soft to palpation and non-tender Extremity: LEFT UPPER EXTREMITY: Yes wrist (Decreased strength and motion, mild swelling and tenderness to palpation) LEFT LOWER EXTREMITY: Yes knee joint (Diminished ROM, small skin tear and edema) Neuro: OTHER: NIH 1, Left leg drift Psych: APPEARANCE: Yes disheveled ATTITUDE: Yes calm ACTIVITY/MOTOR BEHAVIOR: Yes appropriate eye contact SPEECH: Yes normal speech THOUGHT PROCESS: disorganized and confused MEMORY/COGNITION: Yes memory grossly impaired and Yes cognition grossly impaired INSIGHT: Fair insight present (Psych) JUDGEMENT: Fair judgement present (Psych) Skin: COMMON NORMALS: turgor normal OTHER: Small scab on left knee Data 03/22/25 10:58 03/22/25 10:58 Micro: Microbiology 03/22/25 10:58 Blood Culture - Preliminary Blood SPECIMEN COLLECTED 03/22/25 10:58 Blood Culture - Preliminary Blood SPECIMEN COLLECTED A&P Assessment and plan 1. Metabolic encephalopathy: 2. Acute confusion: 3. Bowel incontinence: 4. Strain of left wrist: 5. Multiple falls: 6. Volume depletion: 7. Cognitive decline: 8. Effusion, left knee: 9. Diabetes mellitus with nephropathy: 10. HTN (hypertension): 11. Atrial fibrillation: 12. PVCs (premature ventricular contractions): 13. Diastolic dysfunction: 14. CAD (coronary artery disease): Plan: Metabolic encephalopathy Acute confusion, cognitive decline Volume depletion Hypokalemia - Admitting WBC 11.91, Potassium 3.2, CK 704 - Pending CT head - Gentle IV fluid hydration with NS KCl 20 mEq 100 mL/h - Neurochecks every shift - NIH 1 on admission - Pending Blood Culture x 2, Urine Culture Fall Inability to ambulate Bowel incontinence Left wrist strain Left knee effusion - Left knee x-ray with joint effusion without other bone or joint abnormality., Left wrist x-ray with no acute bone or joint abnormality. 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 - Pending CT C, L, T-spine - consider ortho consultation if warranted - Fall precautions, bedrest currently - Pending physical therapy and Occupational Therapy evaluations DM-II - SSI, POC - Carb controlled diet - Pending A1c - Resume home medications after verification Essential hypertension Coronary artery disease Atrial fibrillation, rate controlled PVCs - CXR: Cardiomegaly without acute chest abnormality - Admitting B/p: 167/66 - Patient did not have morning medications - Resume cardio-protective medications - Pending TSH and Lipid panel Chronic diastolic heart failure - Hypovolemic on admission - Giving gentle IV fluids, monitor for volume overload - Pending ECHO - Pending BNP Obesity - Admitting BMI 33.9 - Continued carb controlled diet advised VTE PPx: SCDs, home Eliquis GI PPx: PPI CODE STATUS: Full code POA: Patient's son Roderick Guzmán PDMP PDMP Reviewed: Not Reviewed Attestations Medical Necessity Statement*: Patient will be admitted inpatient expectation greater than 2 midnights due to metabolic encephalopathy, inability to ambulate with bowel incontinence necessitating further workup and possible surgical consultation, and medical management of comorbidities. Time Spent in Patient Care: Greater than 35 minutes Time spent at bedside with patient and consulting with patient's family member greater than 35 minutes total time spent in reviewing patient's chart in combination with patient care greater than 75 minutes, approximately 78 minutes. and High Time for a total of 78 minutes, includes reviewing past or interval history, placing orders, counseling patient/family/other support, updating patient/family/other support, discussing plan of care with staff, documenting encounter and coordinating care Diagnoses Metabolic encephalopathy G93.41 Acute confusion R41.0 Bowel incontinence R15.9 Strain of left wrist S66.912A Multiple falls R29.6 Volume depletion E86.9 Cognitive decline R41.89 Effusion, left knee M25.462 Diabetes mellitus with nephropathy E11.21 HTN (hypertension) I10 Atrial fibrillation I48.91 PVCs (premature ventricular contractions) I49.3 Diastolic dysfunction I51.89 CAD (coronary artery disease) I25.10
[2025-03-22] MEDS: pantoprazole 40 mg SDV IVP (15:34)
[2025-03-22] MEDS: sodium chlor 0.9% + KCl 20 mEq 20 MEQ/1,000 ML BAG 100 MEQ IV (15:35)
--- NOTE | 2025-03-22 15:56 | USCV_ITS ---
Roderick Arnold Age: 79 Gender: M : 1945 Exam Date: 03/22/2025 18:40 Ordering Phys: Magalie Wild NP Technologist: MITRA [place] [facility] [place]: CHF, HTN. History of Afib, TAVR, CAD s/p CABGx3, PCI, DM2 BP: 183 / 84 HR: 58 Rhythm: Sinus Technical Quality: Adequate MEASUREMENTS (Male / Female) Normal Values 2D ECHO LV Diastolic Diameter PLAX 5.5 cm 4.2 - 5.9 / 3.9 - 5.3 cm IVS Diastolic Thickness 1.5 cm 0.6 - 1.0 / 0.6 - 0.9 cm IVS Systolic Thickness 2.1 cm LVPW Diastolic Thickness 1.6 cm 0.6 - 1.0 / 0.6 - 0.9 cm LVPW Systolic Thickness 1.7 cm LVOT Diameter 2.4 cm LV Ejection Fraction 2D Teich 50.5 % LV Ejection Fraction MOD 4C 62.3 % LV Ejection Fraction MOD 2C 59.1 % LV Ejection Fraction 2C AL 59.0 % LA Diameter 5.8 cm Aorta at Sinotubular Diameter 2.8 cm IVC Diameter 0.9 cm M-MODE LA Ao Ratio MM 1.7 AV Cusp Separation MM 1.8 cm DOPPLER AV Peak Velocity 174.7 cm/s LVOT Peak Velocity 57.0 cm/s AV Area Cont Eq vti 1.6 cm squared AV Area Cont Eq pk 1.4 cm squared MV Peak Velocity 104.0 cm/s MV Area PHT 3.9 cm squared Mitral E to A Ratio 1.8 TV Peak Velocity 269.0 cm/s TR Peak Velocity 281.0 cm/s TR Peak Gradient 31.6 mmHg TV Peak E Velocity 39.0 cm/s PV Peak Velocity 93.0 cm/s FINDINGS Left Ventricle Normal left ventricular size and systolic function, EF 55%.moderate left ventricular hypertrophy. No regional wall motion abnormalities. Grade III/IV diastolic dysfunction (restrictive filling pattern), severely elevated filling pressures. Right Ventricle Normal right ventricular size and systolic function. Right Atrium Normal right atrial size. Left Atrium Mildly increased left atrial size. IA Septum Appears to be intact Mitral Valve Thickened mitral valve. Mild mitral annular calcification. Moderate mitral valve regurgitation. Aortic Valve The bioprosthetic valve at the aortic position appears to be well-seated. Leaflets could not be visualized well. Peak velocity across the valve was 2.3 m/s with a peak gradient of 22 and a mean gradient of 9 mmHg Tricuspid Valve Mild tricuspid valve regurgitation. Estimated pulmonary artery peak systolic pressure 35 mmHg Pulmonic Valve Mild pulmonary valve regurgitation. Pericardium No pericardial effusion. Aorta Normal aortic annulus size. IVC Normal inferior vena cava. CONCLUSIONS Normal left ventricular size and systolic function, EF 55%.moderate left ventricular hypertrophy. No regional wall motion abnormalities. Grade III/IV diastolic dysfunction (restrictive filling pattern), severely elevated filling pressures. Thickened mitral valve. Mild mitral annular calcification. Moderate mitral valve regurgitation. The bioprosthetic valve at the aortic position appears to be well-seated. Leaflets could not be visualized well. Peak velocity across the valve was 2.3 m/s with a peak gradient of 22 and a mean gradient of 9 mmHg. Mild tricuspid valve regurgitation. Estimated pulmonary artery peak systolic pressure 35 mmHg. Mild pulmonary valve regurgitation. There is no pericardial effusion. There are no intracardiac masses. Compared to the study from 01/29/2023, there may not be a significant change. Dr Mary Jo Kimball MD [facility] (Electronically Signed) Final Date: 22 March 2025 22:37 S
[2025-03-22 17:11] LABS: Estmated Average Glucose 123; Hemoglobin A1C 5.9 % (4.0-6.0)
--- OUTSIDE RECORDS SUMMARY | 2025-03-22 20:12 | XMS_ITS | Patient Health Record ---
Author Organization [facility] Address [address] [place] [address] Care Team Providers Care Bologna Maker Name Role Phone Lila Salmeron Primary Care Provider Elías Bonilla [phone] Allergies No Known Allergies Reason For Referral No Information Medications Medication SIG (Take, Route, Frequency, Duration) Notes Start Date End Date Status HYDROcodone-Acetaminophen 5-325 MG Tablet TAKE 1 TABLET BY MOUTH EVERY 6 HOURS FOR 5 DAYS Oral; Duration: 5 Days Active Methocarbamol 750 MG Tablet TAKE 1 TABLE T BY MOUTH EVERY 8 HOURS FOR 5 DAYS Oral; Duration: 5 Days Active Social History Tobacco Use: Social History Observation Description Date Details (start date - stop date) Former Smoker NA - NA Social History Drugs/Alcohol: Social Info Question Answer Notes Drugs Have you used drugs other than those for medical reasons in the past 12 months? No Drug/Alcohol: Social Info Question Answer Notes AUDIT-C (Standard) Did you have a drink containing alcohol in the past year? No Points 0 Interpretation Negative Tobacco Use: Social Info Question Answer Notes Tobacco Control (Standard) Tobacco use: Former smoker How long has it been since you last smoked? Greater than 10 years Problems Problem Type SNOMED Code ICD Code Onset Dates Problem Status W/U Status Risk Notes Problem Degeneration of lumbar intervertebral disc (48740199) Disc degeneratio n, lumbar (M51.36) Active confirmed Plan Of Treatment Pending Test Test Name Order Date Prothrombin Time 32488 07/12/2023 Prothrombin Time 32173 08/01/2023 Basic Metabolic Panel (BMP) 67489 2023 Basic Metabolic Panel (BMP) 53319 2023 CBC w\ Auto Diff 69080 08/01/2023 CBC w\ Auto Diff 43477 07/12/2023 Partial Thromboplastin Time 88871 2023 Partial Thromboplastin Time 38114 2023 Chest PA/Lat-89321 08/01/2023 Chest PA/Lat-56505 07/12/2023 Electrocardiogram 12 Lead Tracing-63849 07/12/2023 Glucometer WBG--25514 08/07/2023 zzzFluoroscopy 08/07/2023 zzzMRI Outside CD 04/30/2023 IH Lumbosacral Spine AP/Lat - 69812 040 07/2023 IH Lumbosacral Spine AP/Lat - 55819 0 07/2023 Insurance Providers Payer Name Payer Address Payer Phone Subscriber Number Group Number Insured Name Patient Relationship to Insured Coverage Start Date Coverage End Date [employer] [address] [place] [phone] [id number] Roderick Arnold Self - patient is the insured Medical (General) History Medical History History ICD Code Heart Disease Diabetes Cancer Surgical History Surgery Date(Month/Year) Appendix surgery Hospitalization History Reason Date(Month/Year) see above
[2025-03-23] VITALS: BP 163/84; PULSE 64; RESP 17; TEMP 36.9; O2SAT 96
[2025-03-23] MEDS: sodium chlor 0.9% + KCl 20 mEq 20 MEQ/1,000 ML BAG 100 MEQ IV (03:03)
[2025-03-23 04:00] VITALS: BP 159/76; PULSE 61; RESP 18; TEMP 37.1; O2SAT 94
[2025-03-23 05:40] LABS: Hematocrit 30.3 % (37-53); Hemoglobin 9.70 g/dL (11.27-16.99); Mean Corpuscular HGB Conc 32.0 g/dL (30-55); Mean Corpuscular Hemoglobin 28.4 pg (27-33); Mean Corpuscular Volume 88.9 fl (82-101); Nucleated Red Blood Cells % 0 %; Platelet Count 310 10^3/cmm (157-399); Red Blood Count 3.41 10^6/uL (3.85-5.65); White Blood Count 10.67 10^3/uL (3.29-11.43)
[2025-03-23 05:57] LABS: Lactic Sepsis W/Reflex 1.1 mmol/L (0.5-2.2)
[2025-03-23 06:00] VITALS: BMI 30.9
[2025-03-23 06:07] LABS: Alanine Aminotransferase 25 U/L (0-41); Albumin Level 2.9 g/dL (3.5-5.2); Alkaline Phosphatase 46 U/L (40-130); Anion Gap 16.3 (5-19); Aspartate Amino Transferase 35 U/L (0-40); Blood Urea Nitrogen 11 mg/dL (8-23); Calcium 8.3 mg/dL (8.5-10.5); Carbon Dioxide 22 mmol/L (22-29); Chloride 107 mmol/L (98-107); Globulin 3.5 g/dL (1.3-4.6); Glucose 109 mg/dL (65-115); Magnesium 1.6 mg/dL (1.7-2.3); Osmolality Calculated 294 mOsm/kg (285-295); Potassium 3.3 mmol/L (3.5-5.1); Sodium 142 mmol/L (136-145); Thyroid Stimulating Hormone 9.27 uIU/mL (0.27-4.20); Total Protein 6.4 g/dL (6.6-8.7)
[2025-03-23 06:08] LABS: Cholesterol 84 mg/dL (0-200); HDL Cholesterol 23 mg/dL (60-100); NT Pro B Type Natriuretic Pept 1873 pg/mL (0-450); Triglycerides 101 mg/dL (0-150)
[2025-03-23 07:24] VITALS: BP 185/81; PULSE 61; RESP 18; TEMP 36.8; O2SAT 93
--- NOTE | 2025-03-23 07:38 | P.PN_ITS ---
Subjective 2 Subjective: Patient is a very pleasant 79-year-old male seen and examined at bedside on hospital rounds today. Patient laying in bed still unable to ambulate, states bodily pain, orientation x 2 with continued confusion, dyspnea, continues bowel incontinence. Patient denies new symptoms. Reviewed Ct's negative for acute processes. Unable to explain patient's inability to ambulate. Hemoglobin 9.70 with stable, improving CK3 92, elevated BNP 1873, low magnesium 1.6, low potassium 3.3. Will replenish electrolytes, await physical therapy and Occupational Therapy evaluation and recommendations, and work with case management on discharge planning. Patient will most likely need SNF level of care at discharge. Vitals/I&O/Wt Last Vital Signs Temp 98.3 F 03/23/25 07:24 Pulse 61 03/23/25 07:24 Resp 18 03/23/25 07:24 BP 185/81 03/23/25 07:24 Pulse Ox 93 03/23/25 07:24 O2 Del Method Room Air 03/23/25 07:24 03/22/25 03/23/25 03/23/25 22:59 06:59 14:59 Intake Total 1000 / 1000 Output Total 200 / 200 600 / 800 Balance -200 / -200 400 / 200 Weight last 48 hrs Weight 103.419 kg Weight 103.464 kg Weight 113.398 kg Physical Exam 2 Narrative: Disheveled 79-year-old male sitting up in bed, pleasant, conversant and interactive but very confused orientation x 2 HENMT: COMMON NORMALS: normocephalic, atraumatic and Normal external nose present HEAD & SCALP: normocephalic and atraumatic NOSE: Normal external nose present OTHER: Dry mucous membranes Eye: COMMON NORMALS: Equal, round and reactive pupils present PUPIL: Yes Equal, round and reactive pupils present OTHER: Decreased vision left eye Neck/C-Spine: COMMON NORMALS: no lymphadenopathy and no JVD Resp: COMMON NORMALS: normal respiratory effort AUSCULTATION: diminished lung sounds Cardio: COMMON NORMALS: no JVD, regular rate, S1 normal heart sound present and S2 normal heart sound present RATE: regular rate HEART SOUNDS: S1 normal heart sound present and S2 normal heart sound present GI: COMMON NORMALS: Normal to inspection, nondistended, normoactive bowel sounds present, Soft to palpation and non-tender PALPATION: Yes Soft to palpation Extremity: LEFT UPPER EXTREMITY: Yes wrist (Decreased strength and motion, mild swelling and tenderness to palpation) LEFT LOWER EXTREMITY: Yes knee joint (Diminished ROM, small skin tear and edema) Neuro: OTHER: Left leg drift, bodily weakness Psych: COMMON NORMALS: speech normal APPEARANCE: Yes disheveled A TTITUDE: Yes calm ACTIVITY/MOTOR BEHAVIOR: Yes appropriate eye contact S PEECH: Yes normal speech THOUGHT PROCESS: disorganized and confused M JENNIFER/COGNITION: Yes memory grossly impaired and Yes cognition grossly impaired INSIGHT: Fair insight present (Psych) JUDGEMENT: Fair judgement present (Psych) Skin: COMMON NORMALS: turgor normal GENERAL SKIN EXAM: turgor normal O THER: Small scab on left knee Data 03/23/25 05:33 03/23/25 05:33 Micro: Microbiology 03/22/25 10:58 Blood Culture - Preliminary Blood SPECIMEN COLLECTED 03/22/25 10:58 Blood Culture - Preliminary Blood SPECIMEN COLLECTED A&P Assessment and plan 1. Metabolic encephalopathy: 2. Acute confusion: 3. Bowel incontinence: 4. Strain of left wrist: 5. Multiple falls: 6. Volume depletion: 7. Cognitive decline: 8. Effusion, left knee: 9. Diabetes mellitus with nephropathy: 10. HTN (hypertension): 11. Atrial fibrillation: 12. PVCs (premature ventricular contractions): 13. Diastolic dysfunction: 14. CAD (coronary artery disease): Plan: Metabolic encephalopathy Acute confusion, cognitive decline Volume depletion Hypokalemia and hypomagnesemia - Admitting WBC 11.91, Potassium 3.2, CK 704--<392 - CT head no acute intracranial abnormality. - Given Gentle IV fluid hydration with NS KCl 20 mEq 100 mL/h, completed - Neurochecks every shift - NIH 1 on admission - Blood Culture x 2 with NGTD, Urine Culture pending with mixed javi Fall, weakness Inability to ambulate Bowel incontinence Left wrist strain Left knee effusion - Left knee x-ray with joint effusion without other bone or joint abnormality., Left wrist x-ray with no acute bone or joint abnormality. 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 - CT C, L, T-spine -with no acute fracture, does have laminectomies to L4 and L5 - Fall precautions - Pending physical therapy and Occupational Therapy evaluations - May need SNF level of care on discharge with sharp decline in mobility Multifocal Pneumonia Trace Pleural Fluid - CT Thoracic spine w/o contast: Concern for pulmonary edema vs atypical infection or aspiration - reviewed with , consitent with multifocal areas of opacities more on the R than the L consistent with bronchial pneumonia - Speech therapy evaluation appreciated: Recommendation for level 6, soft/bite sized with regular liquids, patient displayed difficulty with mastication of solids. - Aspiration precautions - IV antibiotics Rocphine and doxycycline DM-II - SSI, POC - Carb controlled diet - Pending A1c - Resume home medications after verification Essential hypertension Coronary artery disease Atrial fibrillation, rate controlled PVCs - CXR: Cardiomegaly without acute chest abnormality - Admitting B/p: 167/66 - Patient did not have morning medications - Resume cardio-protective medications - Pending TSH and Lipid panel Chronic diastolic heart failure - Continue cardioprotective medications - BNP 1872 - ECHO withh EF 55%, Grade III/IV diastolic dysfunction, no significant change from 01/29/2023 - Pending BNP Obesity - Admitting BMI 33.9 - Continued carb controlled diet advised VTE PPx: SCDs, home Eliquis GI PPx: PPI CODE STATUS: Full code POA: Patient's son Roderick Guzmán PDMP PDMP Reviewed: Not Reviewed Attestations 2 Medical Necessity Statement*: Patient will be admitted inpatient expectation greater than 2 midnights due to multifocal pneumonia, metabolic encephalopathy, inability to ambulate with bowel incontinence, Pending PT/OT/ST, and medical management of comorbidities. Coding Level of Care Code 55193 Diagnoses Metabolic encephalopathy G93.41 Acute confusion R41.0 Bowel incontinence R15.9 Strain of left wrist S66.912A Multiple falls R29.6 Volume depletion E86.9 Cognitive decline R41.89 Effusion, left knee M25.462 Diabetes mellitus with nephropathy E11.21 HTN (hypertension) I10 Atrial fibrillation I48.91 PVCs (premature ventricular contractions) I49.3 Diastolic dysfunction I51.89 CAD (coronary artery disease) I25.10
[2025-03-23] MEDS: magnesium sulfate premix 2 GM/50 ML PIGGYBACK IV (08:18)
--- NOTE | 2025-03-23 10:23 | PC.CHAP ---
Pastoral Care Encounter/Spiritual Assessment Type of Contact [] Declined pastry mixer visit [] Patient/Family/Request visit [] Outpatient visit [] Follow-up visit [] Physician referral [] Code/Alert [x] Routine visit [] Staff referral [] Actively dying [] Patient sleeping [] Family support [] [] Out of room [] Palliative care [] [] Receiving care in room [] Pre-surgical visit [] Trauma [] Long length of stay [] ICU visit [] Other: Relational/Emotional Strength [x] Patient feels connected with others/family/visitors/staff [] Distress [] Loneliness/isolation [] Abandonment Spirituality of Patient [x] Person of Chani [x] Attends Yazdanism of their Chani [x] Believes in Prayer [x] Reads Bible or Bahai materials [] There are Spiritual issues to be addressed Ship Surveyor Interventions [x] Prayer [x] Active listening [] Non-anxious presence [x] Spiritual/emotional support [] Crisis/trauma care [] Spiritual counseling [] Bereavement support [] Provided bereavement packet [] Provided Bible/devotional materials [] Provided toy/stuffed animal, coloring book to patient or family member [] Provided Communion [] Anointing/[place] [] Salvation [x] Completed spiritual assessment [] Other: Impact on Illness or Injury [] Angry [] Fearful [] Anxious [] Often cries [] Exhaustion [] Unable to work [] Unable to attend latter-day [] Unable to walk/stand [] Unable to read [] Unable to drive [] Unable to eat/drink [] Unable to sleep [] Unable to be with family [] Patient intubated [] Other: Summary Time spent with patient 10 min
[2025-03-23 11:07] VITALS: BP 146/72; PULSE 71; RESP 18; TEMP 36.7; O2SAT 98
[2025-03-23] MEDS: cefTRIAXone 1,000 mg SDV 1000 MG IVP (13:02)
[2025-03-23] MEDS: doxycycline 100 MG in sodium chloride 0.9% (plus) 100 ML IV (13:02)
[2025-03-23] MEDS: pantoprazole 40 mg SDV IVP (15:21)
[2025-03-23 16:00] VITALS: BP 171/82; PULSE 70; RESP 18; TEMP 37.1; O2SAT 97
[2025-03-23 19:51] VITALS: BP 174/72; PULSE 67; RESP 18; TEMP 36.8; O2SAT 98
[2025-03-24] VITALS (7 sets, daily range): BP systolic 138–172; BP diastolic 70–77; PULSE 56–71; RESP 16–17; TEMP 36.5–37.4; O2SAT 95–98
[2025-03-24] MEDS: doxycycline 100 MG in sodium chloride 0.9% (plus) 100 ML IV ×2 (01:00→12:09)
[2025-03-24] MEDS: ferrous sulfate EC 325 mg Tablet PO (05:58)
[2025-03-24 05:59] LABS: Hematocrit 29.6 % (37-53); Hemoglobin 9.60 g/dL (11.27-16.99); Mean Corpuscular HGB Conc 32.4 g/dL (30-55); Mean Corpuscular Hemoglobin 29.2 pg (27-33); Mean Corpuscular Volume 90.0 fl (82-101); Nucleated Red Blood Cells % 0 %; Platelet Count 308 10^3/cmm (157-399); Red Blood Count 3.29 10^6/uL (3.85-5.65); White Blood Count 10.49 10^3/uL (3.29-11.43)
[2025-03-24 06:19] LABS: Alanine Aminotransferase 30 U/L (0-41); Albumin Level 2.7 g/dL (3.5-5.2); Alkaline Phosphatase 50 U/L (40-130); Anion Gap 15.1 (5-19); Aspartate Amino Transferase 42 U/L (0-40); Blood Urea Nitrogen 11 mg/dL (8-23); Calcium 7.9 mg/dL (8.5-10.5); Carbon Dioxide 22 mmol/L (22-29); Chloride 106 mmol/L (98-107); Globulin 3.6 g/dL (1.3-4.6); Glucose 132 mg/dL (65-115); Magnesium 1.6 mg/dL (1.7-2.3); Osmolality Calculated 291 mOsm/kg (285-295); Potassium 3.1 mmol/L (3.5-5.1); Sodium 140 mmol/L (136-145); Total Protein 6.3 g/dL (6.6-8.7)
--- NOTE | 2025-03-24 08:51 | P.PN_ITS ---
Subjective 2 Subjective: Patient is a 79-year-old male seen and examined at bedside on hospital rounds today patient sitting up in bed stating that he just hurts all over, orientation x 2 at his baseline. Vital signs remained stable. Spoke with patient about the need for rehab, and the need to participate with PT/OT-he states that he just does not feel good today but would try. Patient is short of breath, he states that his medications are making him short of breath, denies new or worsening symptoms. WBC 10.49, potassium 3.1, magnesium 1.6-replacing electrolytes this morning. Will continue current interventions inpatient, working with case management on discharge planning. Vitals/I&O/Wt Last Vital Signs Temp 99.0 F 03/24/25 07:34 Pulse 58 L 03/24/25 07:34 Resp 17 03/24/25 07:34 BP 138/70 03/24/25 07:34 Pulse Ox 96 03/24/25 07:34 O2 Del Method Room Air 03/24/25 07:34 03/23/25 03/24/25 03/24/25 22:59 06:59 14:59 Intake Total 360 / 1989 220 / 2210 Output Total 400 / 400 1050 / 1450 Balance -40 / 1590 -830 / 760 Weight last 48 hrs Weight 104.071 kg Weight 103.419 kg Weight 103.464 kg Weight 113.398 kg Physical Exam 2 Narrative: 79-year-old male sitting up in bed, plea martin, conversant and interactive but very confused orientation x 2 HENMT: COMMON NORMALS: normocephalic, atraumatic and Normal external nose present HEAD & SCALP: normocephalic and atraumatic NOSE: Normal external nose present Eye: COMMON NORMALS: Equal, round and reactive pupils present PUPIL: Yes Equal, round and reactive pupils present OTHER: Decreased vision left eye Neck/C-Spine: COMMON NORMALS: no lymphadenopathy and no JVD Resp: COMMON NORMALS: normal respiratory effort AUSCULTATION: diminished lung sounds Cardio: COMMON NORMALS: no JVD, regular rate, S1 normal heart sound present and S2 normal heart sound present RATE: regular rate HEART SOUNDS: S1 normal heart sound present and S2 normal heart sound present GI: COMMON NORMALS: Normal to inspection, nondistended, normoactive bowel sounds present, Soft to palpation and non-tender PALPATION: Yes Soft to palpation Extremity: LEFT UPPER EXTREMITY: Yes wrist (Decreased strength and motion, mild swelling and tenderness to palpation) LEFT LOWER EXTREMITY: Yes knee joint (Diminished ROM, small skin tear and edema) Neuro: OTHER: Left leg drift, bodily weakness Psych: COMMON NORMALS: speech normal APPEARANCE: Yes disheveled A TTITUDE: Yes calm ACTIVITY/MOTOR BEHAVIOR: Yes appropriate eye contact S PEECH: Yes normal speech THOUGHT PROCESS: disorganized and confused M JENNIFER/COGNITION: Yes memory grossly impaired and Yes cognition grossly impaired INSIGHT: Fair insight present (Psych) JUDGEMENT: Fair judgement present (Psych) Skin: COMMON NORMALS: turgor normal GENERAL SKIN EXAM: turgor normal O THER: Small scab on left knee Data 03/24/25 05:09 03/24/25 05:09 Micro: Microbiology 03/22/25 11:10 Urine Culture - Preliminary Urine,Clean Catch 03/22/25 10:58 Blood Culture - Preliminary Blood NEGATIVE TO DATE 03/22/25 10:58 Blood Culture - Preliminary Blood NEGATIVE TO DATE A&P Assessment and plan 1. Metabolic encephalopathy: 2. Acute confusion: 3. Bowel incontinence: 4. Strain of left wrist: 5. Multiple falls: 6. Volume depletion: 7. Cognitive decline: 8. Effusion, left knee: 9. Diabetes mellitus with nephropathy: 10. HTN (hypertension): 11. Atrial fibrillation: 12. PVCs (premature ventricular contractions): 13. Diastolic dysfunction: 14. CAD (coronary artery disease): 15. Pneumonia: Plan: Metabolic encephalopathy Acute confusion, cognitive decline Volume depletion Hypokalemia and hypomagnesemia - Admitting WBC 11.91, Potassium 3.2, CK 704--<392 - CT head no acute intracranial abnormality. - Given Gentle IV fluid hydration with NS KCl 20 mEq 100 mL/h, completed - Neurochecks every shift - NIH 1 on admission - Blood Culture x 2 with NGTD, Urine Culture pending with mixed javi Fall, weakness Inability to ambulate Bowel incontinence Left wrist strain Left knee effusion - Left knee x-ray with joint effusion without other bone or joint abnormality., Left wrist x-ray with no acute bone or joint abnormality. 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 - CT C, L, T-spine -with no acute fracture, does have laminectomies to L4 and L5 - Fall precautions - Appreciate physical therapy and Occupational Therapy intervention - Recommending SNF versus inpatient rehab Multifocal Pneumonia Trace Pleural Fluid - CT Thoracic spine w/o contast: Concern for pulmonary edema vs atypical infection or aspiration - reviewed with , consitent with multifocal areas of opacities more on the R than the L consistent with bronchial pneumonia - Speech therapy evaluation appreciated: Recommendation for level 6, soft/bite sized with regular liquids, patient displayed difficulty with mastication of solids. - Aspiration precautions - IV antibiotics Rocphine and doxycycline - DuoNeb every 6 hours DM-II - SSI, POC - Carb controlled diet - Pending A1c - Resume home medications after verification Essential hypertension Coronary artery disease Atrial fibrillation, rate controlled PVCs - CXR: Cardiomegaly without acute chest abnormality - Admitting B/p: 167/66 - Patient did not have morning medications - Resume cardio-protective medications - Pending TSH and Lipid panel Chronic diastolic heart failure - Continue cardioprotective medications - BNP 1872 - ECHO withh EF 55%, Grade III/IV diastolic dysfunction, no significant change from 01/29/2023 - Pending BNP Obesity - Admitting BMI 33.9 - Continued carb controlled diet advised VTE PPx: SCDs, home Eliquis GI PPx: PPI CODE STATUS: Full code POA: Patient's son Roderick Guzmán PDMP PDMP Reviewed: Not Reviewed Attestations 2 Medical Necessity Statement*: Will need continued inpatient interventions greater than 2 midnights due to multifocal pneumonia, metabolic encephalopathy, inability to ambulate/generalized weakness, with continued PT/OT/ST, and medical management of comorbidities. Coding Level of Care Code 45953 Diagnoses Metabolic encephalopathy G93.41 Acute confusion R41.0 Bowel incontinence R15.9 Strain of left wrist S66.912A Multiple falls R29.6 Volume depletion E86.9 Cognitive decline R41.89 Effusion, left knee M25.462 Diabetes mellitus with nephropathy E11.21 HTN (hypertension) I10 Atrial fibrillation I48.91 PVCs (premature ventricular contractions) I49.3 Diastolic dysfunction I51.89 CAD (coronary artery disease) I25.10 Pneumonia J18.9
[2025-03-24] MEDS: magnesium sulfate premix 1 GM/100 ML PIGGYBACK IV (09:37)
--- NOTE | 2025-03-24 09:39 | PC.CHAP ---
Pastoral Care Encounter/Spiritual Assessment Type of Contact [] Declined human resource assistant visit [] Patient/Family/Request visit [] Outpatient visit [] Follow-up visit [] Physician referral [] Code/Alert [x] Routine visit [] Staff referral [] Actively dying [] Patient sleeping [] Family support [] [] Out of room [] Palliative care [] [] Receiving care in room [] Pre-surgical visit [] Trauma [] Long length of stay [] ICU visit [] Other: Relational/Emotional Strength [x] Patient feels connected with others/family/visitors/staff [] Distress [] Loneliness/isolation [] Abandonment Spirituality of Patient [x] Person of Chani [x] Attends Religious of their Chani [x] Believes in Prayer [x] Reads Bible or Taoism materials [] There are Spiritual issues to be addressed Consumer Science Teacher Interventions [x] Prayer [x] Active listening [] Non-anxious presence [x] Spiritual/emotional support [] Crisis/trauma care [] Spiritual counseling [] Bereavement support [] Provided bereavement packet [] Provided Bible/devotional materials [] Provided toy/stuffed animal, coloring book to patient or family member [] Provided Communion [] Anointing/[place] [] Salvation [x] Completed spiritual assessment [] Other: Impact on Illness or Injury [] Angry [] Fearful [] Anxious [] Often cries [] Exhaustion [] Unable to work [] Unable to attend yazidism [] Unable to walk/stand [] Unable to read [] Unable to drive [] Unable to eat/drink [] Unable to sleep [] Unable to be with family [] Patient intubated [] Other: Summary Time spent with patient 5 min
[2025-03-24] MEDS: cefTRIAXone 1,000 mg SDV 1000 MG IVP (12:09)
--- NOTE | 2025-03-24 12:38 | PC.NURSE ---
Patient is refusing tele. [place] Benjamin attempted to place pt back on tele and pt pulled off leads.
--- NOTE | 2025-03-24 12:39 | PC.SOCIAL ---
Updated IMM Updated pt on IMM. No questions voiced. Provided pt a copy. Initialed, dated, & timed a copy & placed in chart.
--- NOTE | 2025-03-24 14:46 | P.DS_ITS ---
Discharge Providers Date of Admission: 03/22/25 17:05 Date of Discharge: March 24, 2025 Attending Provider at Admission: Owen Abarca MD Attending Provider at Discharge: Magalie Wild NP Primary Care Provider: Lila Salmeron Diagnoses at Discharge Discharge Diagnosis 1. Metabolic encephalopathy: 2. Acute confusion: 3. Bowel incontinence: 4. Strain of left wrist: 5. Multiple falls: 6. Volume depletion: 7. Cognitive decline: 8. Effusion, left knee: 9. Diabetes mellitus with nephropathy: 10. HTN (hypertension): 11. Persistent atrial fibrillation: 12. PVCs (premature ventricular contractions): 13. Diastolic dysfunction: 14. Coronary artery disease involving [place] coronary artery of [place] heart without angina pectoris: 15. Pneumonia: Reason for Visit Reason for Visit: weakness - falls - skin tears Brief History: Admission: Roderick Arnold is a 79 year old male with a past medical history of hypertension, atrial fibrillation, aortic valve stenosis status post TAVR, PTSD, coronary artery disease, status post CABG x 3 with multiple stents, diabetes mellitus type 2, cognitive decline, and morbid obesity who was seen and treated in the ER earlier today. Patient presented with complaints of confusion, last known baseline cognition this prior , fall at home with left wrist and left knee pain, inability to ambulate, and new onset bowel incontinence, and decreased oral intake of food and fluids over the last 4 days. Is also stated by patient's son that he had had intermittent low-grade fevers over the weekend that they were giving Tylenol for. Workup in the ER with WBC 11.91, potassium 3.2, glucose 171, creatinine kinase 704, albumin 3.1. X-ray of left knee and left wrist without acute fracture. EKG with normal sinus rhythm and PVCs. Urine dark yellow with 3+ protein, 2+ blood but negative for nitrites and negative for bacteria. Pending CT head and spine without contrast at time of admission. Patient acknowledges that he is confused, states that we should ask his son that is at the bedside for any history that he is not getting straight. Patient's orientation is x 2. Patient denies current chest pain, shortness of breath, nausea, vomiting, diarrhea, abdominal pain, or syncope. Spoke with patient's son at the bedside and patient's [id number] over the phone who gave very detailed history for this patient. Family states that patient took all of his home medications as normal last night but had to be helped with holding drink with a straw to be able to take these medications. Further workup with PT/OT also pending. [facility], family did bring an updated home medication list with them. Patient will be admitted inpatient given his new onset bowel incontinence, inability to ambulate, and volume depletion-warranting further workup and management. All questions and concerns addressed with the patient and his family at the bedside. Hospital Course Hospital Course Metabolic encephalopathy Acute confusion, cognitive decline Volume depletion Hypokalemia and hypomagnesemia - Admitting WBC 11.91, Potassium 3.2, CK 704--<392 - CT head no acute intracranial abnormality. - Given Gentle IV fluid hydration with NS KCl 20 mEq 100 mL/h, completed - Neurochecks every shift - NIH 1 on admission - Blood Culture x 2 with NGTD, Urine Culture pending with mixed javi Fall, weakness Inability to ambulate Bowel incontinence Left wrist strain Left knee effusion - Left knee x-ray with joint effusion without other bone or joint abnormality., Left wrist x-ray with no acute bone or joint abnormality. 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 - CT C, L, T-spine -with no acute fracture, does have laminectomies to L4 and L5 - Fall precautions - Appreciate physical therapy and Occupational Therapy intervention - Recommending SNF versus inpatient rehab Multifocal Pneumonia Trace Pleural Fluid - CT Thoracic spine w/o contast: Concern for pulmonary edema vs atypical infection or aspiration - reviewed with , consitent with multifocal areas of opacities more on the R than the L consistent with bronchial pneumonia - Speech therapy evaluation appreciated: Recommendation for level 6, soft/bite sized with regular liquids, patient displayed difficulty with mastication of solids. - Aspiration precautions - IV antibiotics Rocphine and doxycycline - DuoNeb every 6 hours DM-II - SSI, POC - Carb controlled diet - Pending A1c - Resume home medications after verification Essential hypertension Coronary artery disease Atrial fibrillation, rate controlled PVCs - CXR: Cardiomegaly without acute chest abnormality - Admitting B/p: 167/66 - Patient did not have morning medications - Resume cardio-protective medications - Pending TSH and Lipid panel Chronic diastolic heart failure - Continue cardioprotective medications - BNP 1873 - ECHO withh EF 55%, Grade III/IV diastolic dysfunction, no significant change from 01/29/2023 - Pending BNP Obesity - Admitting BMI 33.9 - Continued carb controlled diet advised VTE PPx: SCDs, home Eliquis GI PPx: PPI CODE STATUS: Full code POA: Patient's son Roderick Guzmán Discharging in the afternoon due to timing of acceptance. Patient did well overall with improvement of shortness of breath, but he has continued weakness with need for continued PT/OT and is accepted to [place] for halfway at [facility], transports in stable condition on room air via EMS. Patient will transition to oral antibiotic therapy to continue for 5 more days at discharge. Recommend continued weekly monitoring of labs and electrolytes. Advised follow-up with primary care provider within 1 to 3 days of discharge. Greatly appreciate case management discharge planning and coordination with the family. Physical Exam Narrative: 79-year-old male sitting up in bed, plea martin, conversant and interactive but very confused orientation x 2 HENMT: COMMON NORMALS: normocephalic, atraumatic and Normal external nose present HEAD & SCALP: normocephalic and atraumatic NOSE: Normal external nose present Eye: COMMON NORMALS: Equal, round and reactive pupils present PUPIL: Yes Equal, round and reactive pupils present OTHER: Decreased vision left eye Neck/C-Spine: COMMON NORMALS: no lymphadenopathy and no JVD Resp: COMMON NORMALS: normal respiratory effort AUSCULTATION: diminished lung sounds Cardio: COMMON NORMALS: no JVD, regular rate, S1 normal heart sound present and S2 normal heart sound present RATE: regular rate HEART SOUNDS: S1 normal heart sound present and S2 normal heart sound present GI: COMMON NORMALS: Normal to inspection, nondistended, normoactive bowel sounds present, Soft to palpation and non-tender PALPATION: Yes Soft to palpation Extremity: LEFT UPPER EXTREMITY: Yes wrist (Decreased strength and motion, mild swelling and tenderness to palpation) LEFT LOWER EXTREMITY: Yes knee joint (Diminished ROM, small skin tear and edema) Neuro: OTHER: Left leg drift, bodily weakness Psych: COMMON NORMALS: speech normal APPEARANCE: Yes disheveled ATTITUDE: Yes calm ACTIVITY/MOTOR BEHAVIOR: Yes appropriate eye contact SPEECH: Yes normal speech THOUGHT PROCESS: disorganized and confused MEMORY/COGNITION: Yes memory grossly impaired and Yes cognition grossly impaired INSIGHT: Fair insight present (Psych) JUDGEMENT: Fair judgement present (Psych) Skin: COMMON NORMALS: turgor normal GENERAL SKIN EXAM: turgor normal OTHER: Small scab on left knee Discharge Data Studies Completed and Pending Completed Studies During Hospitalization Category Date Time Status CT cervical spine wo con [CT cervical spin wo con* Cat Scan 03/22/25 14:58 Completed [id number]] Stat CT head wo con* 15674 Stat Cat Scan 03/22/25 14:[address] lumbar spine wo con* 30338 Stat Cat Scan 03/22/25 15:[address] thoracic spine wo con [CT thoracic spin wo con* Cat Scan 03/22/25 15:03 Completed [id number]] Stat XR chest 1V portable [id number] Stat Exams 03/22/25 10:44 Completed XR knee LT 3V* [id number] Stat Exams 03/22/25 10:44 Completed XR wrist LT min 3V* [id number] Stat Exams 03/22/25 10:44 Completed US echo complete [CV. echo complete* [id number]] Stat Ultrasound 03/22/25 15:56 Completed Pending at discharge Category Date Time Status Blood Culture Stat Lab 03/22/25 10:58 Results Complete Blood Count w/Auto AM LABS Lab 03/25/25 04:00 Ordered Comprehensive Metabolic Panel AM LABS Lab 03/25/25 04:00 Ordered Magnesium AM LABS Lab 03/25/25 04:00 Ordered Radiology Impressions Chest X-Ray 03/22/25 10:44 IMPRESSION: Cardiomegaly without acute chest abnormality. Knee X-Ray 03/22/25 10:44 IMPRESSION: Joint effusion without other bone or joint abnormality. Wrist X-Ray 03/22/25 10:44 IMPRESSION: No acute bone or joint abnormality. Cervical Spine CT 03/22/25 14:58 IMPRESSION: No acute cervical spine fracture. Head CT 03/22/25 14:58 IMPRESSION: No acute intracranial abnormality. Lumbar Spine CT 03/22/25 15:03 IMPRESSION: No acute lumbar spine fracture. Laminectomies at L4 and L5. COMMENTS: Consistent with the [employer]'s Incidental Findings Committee white paper (J Am Marifer Radiol 2018): Any incidental renal lesion less than 1 cm or classified as too small to characterize, or any incidental cystic renal lesion characterized as simple-appearing, is likely benign. No follow-up imaging is recommended for these lesions per consensus recommendations based on imaging criteria. Thoracic Spine CT 03/22/25 15:03 IMPRESSION: No acute thoracic spine fracture. Trace pleural fluid. Possible trace pulmonary edema versus atypical infection or aspiration. Laboratory Results WBC 10.49 10^3/uL (3.29-11.43) 03/24/25 05:09 RBC 3.29 10^6/uL (3.85-5.65) L 03/24/25 05:09 Hgb 9.60 g/dL (11.27-16.99) L 03/24/25 05:09 Hct 29.6 % (37-53) L 03/24/25 05:09 MCV 90.0 fl (82-101) 03/24/25 05:09 MCH 29.2 pg (27-33) 03/24/25 05:09 MCHC 32.4 g/dL (30-55) 03/24/25 05:09 RDW 14.7 % (12.1-15.1) 03/24/25 05:09 Plt Count 308 10^3/cmm (157-399) 03/24/25 05:09 MPV 11.7 fL (7.4-10.4) H 03/24/25 05:09 Neut % (Auto) 66.4 % 03/24/25 05:09 Lymph % (Auto) 19.0 % 03/24/25 05:09 [place] % (Auto) 10.8 % 03/24/25 05:09 Eos % (Auto) 2.9 % 03/24/25 05:09 Baso % (Auto) 0.6 % 03/24/25 05:09 Neut # (Auto) 6.98 10^3/uL (1.8-7.7) 03/24/25 05:09 Lymph # (Auto) 2.0 10^3/uL (0.8-4.8) 03/24/25 05:09 [place] # (Auto) 1.1 10^3/uL (0.2-0.9) H 03/24/25 05:09 Eos # (Auto) 0.3 10^3/uL (0.0-0.8) 03/24/25 05:09 Baso # (Auto) 0.1 10^3/uL (0.0-0.1) 03/24/25 05:09 Nucleated RBC % (auto) 0 % 03/24/25 05:09 Nucleated RBCs # 0.0 /100WBC 03/24/25 05:09 Sodium 140 mmol/L (136-145) 03/24/25 05:09 Potassium 3.1 mmol/L (3.5-5.1) L 03/24/25 05:09 Chloride 106 mmol/L (98-107) 03/24/25 05:09 Carbon Dioxide 22 mmol/L (22-29) 03/24/25 05:09 Anion Gap 15.1 (5-19) 03/24/25 05:09 BUN 11 mg/dL (8-23) 03/24/25 05:09 Creatinine 0.9 mg/dL (0.7-1.2) 03/24/25 05:09 GFR Calculation Not Reportable 03/24/25 05:09 Glucose 132 mg/dL (65-115) H 03/24/25 05:09 POC Glucose 143 mg/dL (70-110) H 03/24/25 06:40 Estimat Average Glucose 123 03/22/25 10:58 Hemoglobin A1c 5.9 % (4.0-6.0) 03/22/25 10:58 Calculated Osmolality 291 mOsm/kg (285-295) 03/24/25 05:09 Lactic Acid 1.1 mmol/L (0.5-2.2) 03/23/25 05:33 Calcium 7.9 mg/dL (8.5-10.5) L 03/24/25 05:09 Magnesium 1.6 mg/dL (1.7-2.3) L 03/24/25 05:09 Total Bilirubin 0.7 mg/dL (0.15-1.2) 03/24/25 05:09 AST 42 U/L (0-40) H 03/24/25 05:09 ALT 30 U/L (0-41) 03/24/25 05:09 Alkaline Phosphatase 50 U/L (40-130) 03/24/25 05:09 Creatine Kinase 392 U/L (39-308) H* 03/23/25 05:33 NT-Pro-B Natriuret Pep 1873 pg/mL (0-450) H 03/23/25 05:33 Total Protein 6.3 g/dL (6.6-8.7) L 03/24/25 05:09 Albumin 2.7 g/dL (3.5-5.2) L 03/24/25 05:09 Globulin 3.6 g/dL (1.3-4.6) 03/24/25 05:09 Triglycerides 101 mg/dL (0-150) 03/23/25 05:33 Cholesterol 84 mg/dL (0-200) 03/23/25 05:33 LDL Cholesterol, Calc 41 mg/dL (50-129) L 03/23/25 05:33 HDL Cholesterol 23 mg/dL (60-100) L 03/23/25 05:33 LDL/HDL Ratio 1.78 RATIO (0.00-3.22) 03/23/25 05:33 Cholesterol/HDL Ratio 3.65 mg/dL (1.0-5.00) 03/23/25 05:33 TSH 9.27 uIU/mL (0.27-4.20) H 03/23/25 05:33 Urine Color Dark yellow (Yellow) A 03/22/25 11:10 Urine Appearance Clear (CLEAR) 03/22/25 11:10 Urine pH 5.5 (5-7) 03/22/25 11:10 Ur Specific Corea 1.026 (1.005-1.030) 03/22/25 11:10 Urine Protein 3+ (Negative) A 03/22/25 11:10 Urine Glucose (UA) Negative (Normal) 03/22/25 11:10 Urine Ketones Trace (Negative) 03/22/25 11:10 Urine Blood 2+ (Negative) A 03/22/25 11:10 Urine Nitrate Negative (Negative) 03/22/25 11:10 Urine Bilirubin 1+ (Negative) H 03/22/25 11:10 Urine Urobilinogen 1.0 mg/dL (Negative) 03/22/25 11:10 Ur Leukocyte Esterase Trace (Negative) A 03/22/25 11:10 Urine RBC 11-20 /hpf (0-2) H 03/22/25 11:10 Urine WBC 0-5 /hpf (0-5) 03/22/25 11:10 Ur Squamous Epith Cells 0-5 /hpf (0-5) 03/22/25 11:10 Amorphous Sediment Not Reportable 03/22/25 11:10 Urine Bacteria None seen /hpf (NONE) 03/22/25 11:10 Hyaline Casts 3.30 /lpf 03/22/25 11:10 Influenza A (PCR) Negative (Negative) 03/22/25 11:04 Influenza Type B (PCR) Negative (Negative) 03/22/25 11:04 RSV (PCR) Negative (Negative) 03/22/25 11:04 SARS-CoV-2 (PCR) Negative (Negative) 03/22/25 11:04 Vitals Last Vital Signs Temp 99.3 F 03/24/25 11:09 Pulse 60 03/24/25 13:26 Resp 16 03/24/25 13:26 BP 146/73 03/24/25 11:09 Pulse Ox 98 03/24/25 13:26 O2 Del Method Room Air 03/24/25 13:26 Discharge Plan Discharge Patient Disposition: Xfer SNF Condition: Stable Prescriptions: New hydrocodone-acetaminophen 5-325 mg tablet 1 tab PO Q8H PRN (Reason: pain) Qty: 14 0RF Rx Instructions: Take 1/2 to 1 tab every 8 hours as needed for pain polyethylene glycol 3350 [Miralax] 17 gram/dose powder 17 g PO DAILY Qty: 510 0RF Rx Instructions: Take 1 scoop daily while taking pain medications. cefdinir 300 mg capsule 300 mg PO BID 5 Days Qty: 10 0RF doxycycline hyclate 100 mg capsule 100 mg PO BID 5 Days Qty: 10 0RF Continued glipizide 10 mg tablet 10 mg PO BID tamsulosin 0.4 mg capsule 0.4 mg PO QPM metformin 850 mg tablet 850 mg PO BID Tart Lei Extract 1,000 mg capsule 1,000 mg PO DAILY Eliquis 5 mg tablet 5 mg PO BID ferrous sulfate 325 mg (65 mg iron) tablet 325 mg PO DAILY amiodarone 200 mg tablet 200 mg PO DAILY Qty: 90 1RF levothyroxine [Levoxyl] 75 mcg tablet 75 mcg PO DAILY sertraline 50 mg tablet 50 mg PO QAM cyanocobalamin (vitamin B-12) 100 mcg tablet 100 mcg PO DAILY prazosin 1 mg capsule 1 mg PO BEDTIME melatonin 3 mg capsule 3 mg PO DAILY ascorbic acid (vitamin C) 500 mg Tablet 500 mg PO DAILY cholecalciferol (vitamin D3) 10 mcg (400 unit) Tablet 10 mcg PO DAILY finasteride 5 mg Tablet 5 mg PO DAILY atorvastatin 80 mg Tablet 80 mg PO DAILY aspirin [Mane Low Dose Aspirin] 81 mg Tablet,Delayed Release (Dr/Ec) 81 mg PO DAILY furosemide 20 mg Tablet See Rx Instructions .ROUTE .COMPLEX Rx Instructions: Take two tabs by mouth every morning and 1 tab by mouth at 2pm daily ondansetron 4 mg Tablet,Disintegrating 4 mg PO Q8H PRN (Reason: Nausea And Vomiting) Men's 50 Plus Multivitamin 400-20-370 mcg Tablet 1 tab PO DAILY magnesium oxide 400 mg magnesium Tablet 200 mg PO DAILY carvedilol 12.5 mg Tablet 6.25 mg PO BID Rx Instructions: must administer with a meal/food cranberry extract 500 mg Capsule 500 mg PO DAILY Rx Instructions: administer with meals potassium chloride 20 mEq Tablet Extended Release 20 meq PO DAILY Held carbamide peroxide 6.5 % Drops 5 drp OTIC (EAR) DAILY Hold Instructions: Resume on 04/05/25. Review with PCP Discharge Order = DC NOW: Discharge Order (Routine); Ordered 03/24/25 Ordered By: Magalie Wild Referrals: [facility] [Outside] [facility] [Occupational Therapist, Medical] - 03/29/25 1:00 pm Lila Salmeron FNP [Primary Care Provider, Family Practice] - 1-3 days Discharge Diet: Usual diet Discharge Activity: Increase activity as tolerated Patient Instructions: Doxycycline (By mouth), Cefdinir (By mouth), Fall Prevention for Older Adults (ED), Opioid Safety, Pain Management, Patient Portal & [place] Instructions Activity Restrictions/Additional Instructions: Thank you for choosing [facility] for your healthcare needs today. You have been screened and evaluated and felt safe for discharge. Health conditions do change or evolve sometimes and as such it is important that you follow up with your Primary Doctor to be re checked, 3-5 days is a general good time frame for follow up. You are always welcome to return to the ED for re assessment if your symptoms are worsening or you have new concerns Plan of Treatment: Will need continued outpatient lab/electrolyte monitoring Discharge Attestations Time Spent in Discharge Care*: greater than 30 min Quality Metrics Clinical Quality Measures [ No reported AMI, CVA or VTE this stay] Coding Level of Care Code 45386 Diagnoses Metabolic encephalopathy G93.41 Acute confusion R41.0 Bowel incontinence R15.9 Strain of left wrist S66.912A Multiple falls R29.6 Volume depletion E86.9 Cognitive decline R41.89 Effusion, left knee M25.462 Diabetes mellitus with nephropathy E11.21 HTN (hypertension) I10 Persistent atrial fibrillation I48.19 Atrial fibrillation type: persistent (not longstanding) PVCs (premature ventricular contractions) I49.3 Diastolic dysfunction I51.89 Coronary artery disease involving [place] coronary artery of [place] heart without angina pectoris I25.10 Coronary Disease-Associated Artery/Lesion type: [place] artery [place] vs. transplanted heart: [place] heart Associated angina: without angina Pneumonia J18.9
--- NOTE | 2025-03-24 15:26 | PC.NURSE ---
This nurse called report to SHIKHA Barker at [facility] at 1521.
== END 2025-03-24 16:24 | disposition skilled nursing facility (03) | DRG 70 ==
LOC: ER 15:06 → MEDSURG 17:59 → ER IP 03-23 07:57
PROVIDERS: Admitting Provider Family Medicine; Emergency Provider Emergency Medicine; PCP Nurse Practitioner Family; Visit Provider Registered Nurse
DX: G93.41 Metabolic encephalopathy (principal); J18.9 Pneumonia, unspecified organism; I50.32 Chronic diastolic (congestive) heart failure; I48.91 Unspecified atrial fibrillation; I10 Essential (primary) hypertension; S66.912A Strain of unspecified muscle, fascia and tendon at wrist and hand level, left hand, initial encounter; E87.6 Hypokalemia; E86.9 Volume depletion, unspecified; E11.21 Type 2 diabetes mellitus with diabetic nephropathy; F43.10 Post-traumatic stress disorder, unspecified; M25.462 Effusion, left knee; E83.42 Hypomagnesemia; I25.10 Atherosclerotic heart disease of native coronary artery without angina pectoris; I49.3 Ventricular premature depolarization; R15.9 Full incontinence of feces; E66.9 Obesity, unspecified; Z79.01 Long term (current) use of anticoagulants; Z95.2 Presence of prosthetic heart valve; Z79.82 Long term (current) use of aspirin; Z79.84 Long term (current) use of oral hypoglycemic drugs; Z79.890 Hormone replacement therapy; Z79.899 Other long term (current) drug therapy; Z95.1 Presence of aortocoronary bypass graft; Z87.891 Personal history of nicotine dependence; Z11.52 Encounter for screening for COVID-19; Z85.46 Personal history of malignant neoplasm of prostate; W19.XXXA Unspecified fall, initial encounter; Z68.33 Body mass index [BMI] 33.0-33.9, adult; Z91.81 History of falling
CPT/HCPCS: 36415; 36416; 70450; 71045; 72125; 72128; 72131; 73110; 73562; 80053; 80061; 81001; 82550; 82962; 83036; 83605; 83735; 83880; 84443; 85025; 87040; 87086; 87637; 92523; 92610; 93005; 93306; 94640; 96361; 96372; 96374; 97110; 97162; 97166; 97530; 97535; 99285; J0696; J1815; J2470; J3475; J3480; J3490; J9999